=== PATIENT | male | born 1950 | race Caucasian/White ===

== ENCOUNTER 2017-03-06 07:44 | Inpatient (IN) | payer MEDICARE ==
[~2017-03-06] VITALS: Ht 172.7 cm; Wt 122.2 kg
[2017-03-06] VITALS (7 sets, daily range): BP systolic 92–142; BP diastolic 56–76
--- NOTE | ~2017-03-06 | PR ---
[place], [place] PROGRESS NOTE NAME: ELIESER KAHN [facility] #: [id number] UNIT #: [id number] ROOM: [facility] DOCTOR: SWETA CRENSHAW MD BIRTHDATE: [birth year] DOS: 03/10/2017 SUBJECTIVE: The patient was seen at his bedside today with his in attendance. He just returned from a CAT scan of the chest and also was just suctioned. He is very fatigued and somewhat breathless. He has very coarse sounding breath sounds. His monitor does show that he is back in atrial flutter with 2:1 block and a ventricular rate of 151. Blood pressure is maintained however at 119/54. He denies any chest pain, but is short of breath and tachypneic. PHYSICAL EXAMINATION: VITAL SIGNS: His pulse is 150 and regular, blood pressure is 119/54. He is afebrile. NECK: Supple. He has mild jugular distention with hepatojugular reflux. Carotids are full. LUNGS: Respirations are tachypneic and he does have audible coarse breath sounds. Respirations are somewhat labored. He does have bibasilar rales. HEART: Has a regular rapid rhythm with distant tones. ABDOMEN: Obese, but otherwise benign. EXTREMITIES: He does have swelling of his arms. He does not have significant ankle edema. The monitor does show atrial flutter. LABORATORY DATA: Hemoglobin is 8.9, white count 1800, platelet count 40,000. Sodium 134, potassium 3.6, BUN 23, and creatinine 1.19. Chest x-ray yesterday showed cardiomegaly with mild hilar vascular congestion and a small left effusion. A CAT scan of the chest is reportedly pending for today. IMPRESSION: 1. Paroxysmal atrial fibrillation and flutter. The patient has remained in atrial flutter and fibrillation since 03/08/2017 and his rate has been difficult to control. He remains on the amiodarone drip and we are giving him intravenous metoprolol. Digoxin level yesterday was 1.6 and we will start routine digoxin dosage today. We will check a digoxin level again tomorrow. 2. Sepsis with gram-positive cocci in clusters in his blood. ID was positive for Staphylococcus aureus, which is also growing in his foot wound. 3. Diabetes mellitus. 4. Essential hypertension. 5. Obesity. 6. Gout. 7. Immunocompromised host. PLAN: We will start digoxin every other day and continue IV metoprolol along with IV amiodarone. The patient is unable to take well p.o. and therefore his medications will be for the most part given intravenously. We will continue efforts to control his rate as his infections are being treated. [place], [place] PROGRESS NOTE NAME: ELIESER KAHN UNIT #: [id number] ROOM: [facility] DOCTOR: SWETA CRENSHAW MD BIRTHDATE: [birth year] I thank the hospitalist group for asking our advice regarding his care. SWETA CRENSHAW MD CM:PNTRANS [id number] SWETA CRENSHAW MD 03/10/17 1554 interface
--- NOTE | ~2017-03-06 | PR ---
[place], [place] PROGRESS NOTE NAME: ELIESER KAHN UNIT #: [id number] ROOM: [facility] DOCTOR: FAVIO NELSON MD BIRTHDATE: [birth year] DOS: 03/13/2017 REASON FOR VISIT: Atrial fibrillation. SUBJECTIVE: The patient is alert, in no acute distress. Denies any chest pain or shortness of breath. The patient is mostly noncommunicative. RHYTHM STRIPS: The patient was in sinus rhythm, rate of 85. REVIEW OF SYSTEMS: Review of the 8 systems negative except as mentioned above. OBJECTIVE: VITAL SIGNS: Blood pressure 113/52, pulse 92, respirations 20. GENERAL: Alert, comfortable, in no acute distress. HEENT: Pupils are round and equal. NECK: Supple. No distended neck veins, no carotid bruit. CHEST: Symmetrical, nontender. LUNGS: Few scattered rhonchi. HEART: Regular rhythm. No S3, no palpable thrills. ABDOMEN: Benign, nontender. Bowel sounds normal. EXTREMITIES: Showed no edema. Distal pulses palpable. SKIN: Warm and dry. No cyanosis, no clubbing. MEDICATIONS: Reviewed. LABORATORY DATA: Reviewed. IMPRESSION AND PLAN: 1. Paroxysmal atrial fibrillation, in sinus rhythm. The patient was on Eliquis, which was discontinued few days ago. He was on IV amiodarone, which I will discontinue after the current bag. His blood pressure and heart rates are stable. - Due to his multiple comorbid conditions, I recommended conservative medical therapy. 2. Chronic kidney disease. 3. Ventricular ectopy, asymptomatic. 4. Metastatic cancer. 5. Bacteremia. The above treatment plan was discussed with the patient and his several family members who were at bedside. Cardiology will sign off and we will see him as needed. [place], [place] PROGRESS NOTE NAME: ELIESER KAHN UNIT #: [id number] ROOM: [facility] DOCTOR: FAVIO NELSON MD BIRTHDATE: [birth year] FAVIO NELSON MD CM:PNTRANS [id number] FAVIO NELSON MD 03/14/17 0625 interface
--- NOTE | ~2017-03-06 | CON ---
[place], [place] REPORT OF CONSULTATION NAME: ELIESER KAHN [facility] #: [id number] UNIT #: [id number] ROOM: [facility] DOCTOR: TERENCE MUNIZ MD BIRTHDATE: [birth year] DOS: 03/08/2017 HISTORY OF PRESENT ILLNESS: The patient is a pleasant 66-year-old [place] gentleman who came to [facility] via EMS for generalized weakness. As per the patient, he received chemotherapy on 03/02/2017, this was the third cycle of Taxotere. Since starting chemo, he started having diarrhea. Subsequently, he came to the Emergency Room and was admitted. On routine CBC examination, was found to be neutropenic and anemic and thrombocytopenic and consulted for further evaluation and management. PAST MEDICAL HISTORY: Metastatic castrate-refractory prostatic adenocarcinoma with a Jorge score of 9 on the right side and 8 on the left side with metastatic disease to the bones, diagnosed in 01/23/2015 on fractional biopsy, skeletal metastatic disease to the cervical, thoracic and lumbar spine, pelvis and hips without any fractures. The patient was on bicalutamide 50 mg daily from 02/2015 to 01/2016. He was on Xgeva 120 mg subcutaneously monthly for a couple of doses between 02/13/2016 to 06/24/2016 for a total of 5 doses, stopped due to hypocalcemia. The patient was on enzalutamide 160 mg by mouth from 03/10/2016 until he recently started chemotherapy on 01/11/2017, history of hypertension, type 2 diabetes, coronary artery disease, obesity, history of metastatic adenocarcinoma diagnosed with prostatic needle biopsy in 01/2015, GERD, and morbid obesity. PAST SURGICAL HISTORY: Colon resection, history of total bilateral knee replacement, and history of Port-A-Cath. SOCIAL HISTORY: No smoking or drinking. He was a former smoker, quit 10 years ago. FAMILY HISTORY: Father with [place], . Mother with [place], . ALLERGIES: ACETAMINOPHEN THAT IS VICODIN. MEDICATIONS: Allopurinol, Norvasc, Eliquis, atorvastatin, calcium carbonate, dexamethasone, leuprolide acetate, megestrol acetate, oxybutynin chloride, phosphorus, prednisone, zoledronic acid, Januvia and tamsulosin. REVIEW OF SYSTEMS CONSTITUTIONAL: No chills. No fatigue. No fever. No loss of appetite. No night sweats. No weakness. No weight loss. HEENT: No trouble swallowing. No loss of smell. No loss of hearing. No double vision. No pain. No discharge. ENT AND RESPIRATORY: No wheeze. No sore throat. No change in voice. No hearing loss. No nose bleed. No cough. No trouble breathing through nose. No shortness of breath. No coughing up blood. No epistaxis. CARDIOVASCULAR: No chest pain. No dizziness. No irregular heartbeat. No leg edema. No pain in legs while walking. No palpitations. No shortness of breath. DERMATOLOGIC: No acne. No hives. No laceration. No mole. No rash. ENDOCRINE: No cold intolerance. No diabetes. No fatigue. No hot flashes. No [place], [place] REPORT OF CONSULTATION NAME: ELIESER KAHN UNIT #: [id number] ROOM: [facility] DOCTOR: TERENCE MUNIZ MD BIRTHDATE: [birth year] polydipsia. No polyuria. No urinating frequently. No weight loss. HEMATOLOGIC AND LYMPH: No fatigue. No easy bruising. GASTROENTEROLOGIC: No change in bowel habits. No indigestion. No frequent bloating. No vomiting blood. No abdominal cramping. No nausea. No heartburn. No vomiting. No abdominal pain. No dysphagia. No diarrhea. No constipation. No blood in stool. MALE REPRODUCTIVE: No testicular pain. No difficulty with erection. No diminished sexual drive. No penile discharge. MUSCULOSKELETAL: No back pain. No muscle pain or weakness. No neck pain. No tingling/numbness. No swelling/bruising. No osteoporosis treatment. OPHTHALMOLOGIC: No double vision. No diminished vision. No loss of vision. UROLOGIC: No dysuria. No frequent nighttime urination. No pain with urination. No difficulty urinating. No blood in urine. No frequent urination. No urinary incontinence. NEUROLOGIC: No loss of sensation in specific body area. No vertigo. No burning pain in feet. No trouble with balance. No trouble with coordination. No loss of consciousness. No loss of feeling/power. No confusion. No headache. No tingling/numbness. PSYCHOLOGIC: No tinnitus. No headaches. No shortness of breath. No weight decrease. No nausea. No vomiting. No abdominal discomfort. No constipation. No diarrhea. No depression. No anxiety. PHYSICAL EXAMINATION: GENERAL: General appearance: Pleasant gentleman, no apparent distress. VITAL SIGNS: Stable, afebrile. HEENT: Oral mucosa appears intact. The external ears are normal in appearance. Nares are patent without lesions, exudates, erythema, or inflammation. Tongue is symmetrical. Uvula is midline. NECK AND THYROID: Neck supple without palpable masses. Trachea is midline. No thyromegaly. No carotid bruit or JVD. BREASTS: Normal. Nipples unremarkable. No drainage. No lumps felt on either side. HEART: Normal S1, S2, without significant murmur, rub, or gallop. LUNGS: Clear to auscultation and percussion with good air entry bilaterally. The patient is breathing easily without the use of accessory muscles. Diaphragmatic excursions are intact. ABDOMEN: No costovertebral angle tenderness. Soft. No organomegaly or masses. Nontender. No hernias present. Liver and spleen are not palpable. LYMPHATIC: No adenopathy noted in the cervical, supraclavicular, axillary, or inguinal regions. NEUROLOGIC: Nonfocal. Oriented to person, place, and time. MENTAL STATUS: Appropriate for mood and affect. PERIPHERAL PULSES: No varicosities. Femoral and pedal pulses are palpable. EXTREMITIES: Without cyanosis, clubbing, or edema. No gross anomalies. LABORATORY DATA: White count of 0.3, hemoglobin of 8.9, hematocrit 26.1, platelet count of 42,000. Chemistry, EGFR more than 60. ASSESSMENT: 1. Metastatic castrate-refractory prostate adenocarcinoma status post cycle #3 [place], [place] REPORT OF CONSULTATION NAME: ELIESER KAHN UNIT #: [id number] ROOM: [facility] DOCTOR: TERENCE MUNIZ MD BIRTHDATE: [birth year] of chemotherapy Taxotere. 2. Pancytopenia secondary to chemotherapy. 3. Neutropenia. 4. History of atrial fibrillation. 5. History of Clostridium difficile. PLAN: The patient was started on growth factors, neutropenic precautions, transfusion if the counts drop further. The patient will be also started on antibiotics, if he develops fever. I had a detailed discussion with the patient about it and the family seemed to understand it. Ample time was given to the patient to ask me questions. We will follow. Thanks for consulting and letting me to participate in the care of this interesting patient. TERENCE MUNIZ MD CM:CONSTR:REPORT OF CONSULTATION 1417 03/08/17 2321 interface
--- NOTE | ~2017-03-06 | PR ---
[place], [place] PROGRESS NOTE [id number] UNIT #: [id number] ROOM: [facility] DOCTOR: TERENCE MUNIZ MD BIRTHDATE: [birth year] DOS: 03/16/2017 SUBJECTIVE: The patient is doing some better. He is alert and oriented. Respond to verbal command. PHYSICAL EXAMINATION: GENERAL: Pleasant gentleman in no apparent distress. VITAL SIGNS: Stable, afebrile. HEENT: Normocephalic, atraumatic NECK AND THYROID: Supple. No JVD, thyromegaly, or lymphadenopathy. HEART: Normal S1, S2. Regular rate and rhythm. LUNGS: Clear to auscultation and percussion. ABDOMEN: Soft. Nontender, nondistended. Bowel sounds present. EXTREMITIES: Normal ROM. No clubbing. No edema. LABORATORY DATA: White count of 6.8, hemoglobin 8.4, hematocrit 25.4, platelet count of 51,000. Peripheral smear shows metamyelocytes and myelocytes. ASSESSMENT: 1. Severe sepsis. 2. Staphylococcus aureus bacteremia. 3. Hormone refractory metastatic prostate cancer. 4. Thrombocytopenia, anemia secondary to chemotherapy/bone marrow suppression. PLAN: The patient is already on broad spectrum antibiotics. We will keep a close watch at this time. Transfer on p.r.n. basis. Continue present management. His neutropenia has resolved. Platelet transfusion if he starts bleeding or the platelet count drops. Discussed with the family also in the past. TERENCE MUNIZ MD CM:PNTRANS 3 TERENCE MUNIZ MD 03/16/17903 interface
--- NOTE | ~2017-03-06 | PR ---
[place], [place] PROGRESS NOTE NAME: ELIESER KAHN [facility] #: [id number] UNIT #: [id number] ROOM: [facility] DOCTOR: TERENEC MUNIZ MD BIRTHDATE: [birth year] DOS: 03/10/2017 SUBJECTIVE: The patient was seen today. He is responsive, but somnolent. He is able to communicate by nodding. REVIEW OF SYSTEMS HEENT: No trouble swallowing. No double vision. No loss of vision. No pain. ENT AND RESPIRATORY: No wheeze. No change in voice. No cough. No shortness of breath. No coughing up blood. No epistaxis. CARDIOLOGIC: No chest pain. No dizziness. No irregular heartbeat. No leg edema. No palpitations. No shortness of breath. HEMATOLOGIC AND LYMPH: No past transfusion. No fatigue. No loss of appetite. No easy bruising. GASTROENTEROLOGIC: No change in bowel habits. No vomiting blood. No abdominal cramping. No nausea. No vomiting. No diarrhea. No constipation. No blood in stool. MALE REPRODUCTIVE: No testicular pain. No penile discharge. MUSCULOSKELETAL: No back pain. No muscle pain or weakness. No tingling/numbness. UROLOGIC: No pain with urination. No difficulty urinating. No frequent urination. NEUROLOGIC: No burning pain in feet. No trouble with coordination. No loss of consciousness. No headache. No tingling/numbness. No memory loss. PHYSICAL EXAMINATION: GENERAL: Pleasant gentleman in no apparent distress. VITAL SIGNS: Stable, afebrile. He is on a BiPAP machine. HEENT: Normocephalic, atraumatic NECK AND THYROID: Supple. No JVD, thyromegaly, or lymphadenopathy. HEART: Normal S1, S2. Regular rate and rhythm. LUNGS: Show bilateral decreased breath sounds bilaterally. ABDOMEN: Soft. Nontender, nondistended. Bowel sounds present. EXTREMITIES: Normal ROM. No clubbing. No edema. LABORATORY DATA: White count 1.8, hemoglobin of 8.9, hematocrit 26.1, and platelet count of 40,000. Chemistries: BUN of 23, EGFR more than 60. Sodium 134, potassium 3.6, chloride 100, bicarbonate 22, total protein 4.7, total bilirubin 1.1, SGOT 31, and SGPT 34. ASSESSMENT: 1. Metastatic hormone refractory prostate cancer with metastatic disease to the bones. 2. Pancytopenia secondary to chemotherapy, which is frequent. 3. Sepsis. 4. Bacteremia. 5. Paroxysmal atrial fibrillation. PLAN: His counts got better. His neutrophils decent number. We could stop neutropenic precautions, but continue the growth factors. In addition, he will be going for further workup for possible PE. Continue broad spectrum [place], [place] PROGRESS NOTE NAME: ELIESER KAHN UNIT #: [id number] ROOM: [facility] DOCTOR: TERENCE MUNIZ MD BIRTHDATE: [birth year] antibiotics. Had discussed with the patient and his family in detail. Ample time was given to the patient and family to me ask questions. TERENCE MUNIZ MD CM:PNTRANS [id number] TERENCE MUNIZ MD 03/10/17 1553 interface
--- NOTE | ~2017-03-06 | PR ---
[place], [place] PROGRESS NOTE [id number] #: [id number] ROOM: [facility] DOCTOR: TARA WEBB MD BIRTHDATE: [birth year] DOS: 03/15/2017 SUBJECTIVE: Progressive decline in overall status of the patient was noted. The patient was noted with significant bleeding orally and also other side with possible consideration of the ICU was also considered. The patient was getting pain medication, currently noted on oxygen supplementation nasal cannula. The family members have changed the code status of the patient to comfort care at the present time. OBJECTIVE: GENERAL: The patient's mental status was noted decreased consciousness. HEENT: Shows dried blood noted in nostril. The oral mucosa was also noted extremely dry, which was noted with some clotted blood as well. The neck was supple. CARDIOVASCULAR: S1, S2 audible. LUNGS: Noted with moderate decreased breath sounds with occasional crackles. ABDOMEN: Noted soft. Bowel sounds decreased. EXTREMITIES: Noted with mild edema. CENTRAL NERVOUS SYSTEM: Change in mental status. MUSCULOSKELETAL: No deformities. LABORATORY DATA: CBC today, hemoglobin 7.9, hematocrit 24.4, platelet count 50,000. D-dimer noted elevated at 1.91. The BMP of the patient that was done this morning showed BUN 62, creatinine 2.02, glucose 207, and potassium 3.1. IMPRESSION: Progressive worsening of the respiratory status. The patient was noted with change in mental status, acute respiratory failure, bleeding setting coagulopathy possibly due to DIC with possibility of sepsis and underlying malignancy which has been known as metastatic prostate cancer as well, moderate obesity. PLAN OF TREATMENT: The patient will be continued with current comfort measures as requested by the family member, palliative care provided as the prognosis for this patient is extremely poor. Additional treatment changes will be made for the patient based on progression of illness as needed. [place], [place] PROGRESS NOTE NAME: ELIESER KAHN UNIT #: [id number] ROOM: [facility] DOCTOR: TARA WEBB MD BIRTHDATE: [birth year] TARA NAYLOR MD CM:PNTRANS [phone] TARA TIJERINA MD 03/16/17 0145 interface
--- NOTE | ~2017-03-06 | PR ---
[place], [place] PROGRESS NOTE NAME: ELIESER KAHN UNIT #: [id number] ROOM: [facility] DOCTOR: JERONIMO CAI,ELWIS Juarez BIRTHDATE: [birth year] DOS: 03/13/2017 ADDENDUM I agree with the above plans as described to follow the patient clinically and adjust accordingly. LEWIS DECKER MD CM:PNTRANS [phone] LEWIS DECKER MD 03/13/17 2246 interface
--- NOTE | ~2017-03-06 | CON ---
[place], [place] REPORT OF CONSULTATION NAME: ELIESER KAHN [facility] #: [id number] UNIT #: [id number] ROOM: [facility] DOCTOR: KEYSHAWN SAAVEDRA MD BIRTHDATE: [birth year] DOS: 03/11/2017 HISTORY OF PRESENT ILLNESS: 1. The patient is a 66-year-old gentleman with a past medical history of metastatic cancer of the prostate with spread to the bones and he has undergone chemotherapy. 2. Immunocompromised secondary to prostate cancer and chemotherapy. 3. Recent severe sepsis. 4. Right foot wound and cellulitis. 5. Type 2 diabetes mellitus. 6. Chronic atrial fibrillation. 7. Coronary artery disease of the eagle vessels with history of stent placement. 8. Benign essential hypertension. 9. Chronic gouty arthritis. 10. The patient anticoagulated with Eliquis for chronic atrial fibrillation. 11. Mixed hyperlipidemia. 12. Gastroesophageal reflux disease. The patient presently in ICU with full code status after he received chemotherapy became immunocompromised and developed pancytopenia with sepsis. The patient is being followed by Infectious Disease specialist and being treated with nafcillin. The patient's and sons are present with him. The patient is very weak and only communicates by nodding or shaking his head and he is on oxygen. No recent complaints of chest pain. No fainting episode. No other GI or urinary symptoms. REVIEW OF SYSTEMS: LUNGS: The patient with hypoxemia and shortness of breath. GASTROINTESTINAL: No nausea, vomiting, diarrhea or constipation. CARDIOVASCULAR: No chest pains or palpitations. FAMILY HISTORY: Noncontributory. SOCIAL HISTORY: No recent smoking cigarettes, alcohol and drug abuse. MEDICATIONS: The patient on hyperalimentation, digoxin, metoprolol, allopurinol, oxybutynin, intravenous amiodarone, Megace, prednisone, insulin, nafcillin, temazepam. LABORATORY DATA: Chest x-ray showing a central line. Hemoglobin 9.2. White cell count of 4800, 86% neutrophils, platelets low at 51,000. BUN and creatinine 36 and 1.4, albumin low at 1.5. Digoxin level of 2.04. IMPRESSION: The patient with advanced metastatic cancer of the prostate with mets to the bone, status post chemotherapy and pancytopenia, now with sepsis, is being treated with nafcillin by Infectious Disease specialist. The patient remains in a very weak condition and he has severe protein-calorie malnutrition. The patient's prognosis remains poor and he is in the ICU for treatment with full code status. I had a detailed discussion with the patient's who takes care of him at home normally and his 2 sons who were present with him in the ICU and they decided that the patient would not like any intubation, mechanical [place], [place] REPORT OF CONSULTATION NAME: ELIESER KAHN UNIT #: [id number] ROOM: [facility] DOCTOR: KEYSHAWN SAAVEDRA MD BIRTHDATE: [birth year] ventilation or invasive procedures to save his life and he would like to be DNR comfort care code status. The patient also indicated that he would go with that code status. The patient with severe protein-calorie nutrition to get nutritional supplements and dietary to follow. Sepsis, pancytopenia related to chemotherapy and metastatic cancer of the prostate being treated with IV antibiotics. Acute respiratory failure. The patient remains on oxygen in the ICU and pulse oxygen therapy is being titrated. Chronic atrial fibrillation, heart rate is controlled with intravenous amiodarone and Lopressor. The patient is unable to tolerate diet at present time and he is on Hyperal for his nutritional needs going through the central line. Type 2 diabetes mellitus. Blood sugars are being monitored and treated. Chronic gouty arthritis, presently asymptomatic. Benign essential hypertension. Blood pressure is being monitored and controlled in the ICU. The patient with advanced protein-calorie malnutrition with metastatic prostate cancer to the bones, chemotherapy and pancytopenia with sepsis. The patient and family has decided on maintaining a DNR comfort care code status and would consider hospice consult. I recommended that the patient should be transferred to prison facility at the time of rehab because prior to admission, the patient's was taking care of him at home, but with increased weakness, she is unable to take care of him at home anymore, at least until he possibly gets stronger. This was discussed with patient's and sons and they agree. Dr. Sagar Bernabe, thank you for asking me to see the patient. KEYSHAWN SAAVEDRA MD CM:CONSTR:REPORT OF CONSULTATION 1708 03/12/17 0032 interface
--- NOTE | ~2017-03-06 | CON ---
[place], [place] REPORT OF CONSULTATION [facility] [id number] UNIT #: [id number] ROOM: [facility] DOCTOR: SWETA CRENSHAW MD BIRTHDATE: [birth year] DOS: 03/07/2017 REASON FOR CONSULTATION: Atrial fibrillation with rapid ventricular response. HISTORY OF PRESENT ILLNESS: The patient is a 66-year-old man who is known to have prostate cancer with multiple bone metastases including to his back, knees, hips and shoulders. He states that he has been on chemotherapy lately and has received three courses of chemotherapy thus far. The most recent of these was on 11/11/2017. Since then he has had poor appetite along with diarrhea and weakness. He felt like he could not walk. He feels unsteady on his feet and therefore came to the hospital on 03/06/2017. He was found to be severely dehydrated and septic with gram-positive cocci in clusters. Identification is not yet available. Infection is possibly due to his immunocompromised state from his chemotherapy, in addition to which the patient does have a diabetic foot ulcer on his right foot. The patient was started on antibiotics by the Infectious Disease Service. His electrocardiogram on admission showed sinus tachycardia, but he did convert to atrial fibrillation in the hospital and we were asked to assist in his care. The patient and his deny that he has had any heart problems in the past, but they state that he was first documented as having atrial fibrillation when he was hospitalized at [facility] in January 2017. They state that he did require a cardioversion and has been maintained on Rythmol and apixaban since then. The patient denies any history of myocardial infarction or stroke. He denies any history of rheumatic fever or valvular heart disease. He has not had any chest pain. PAST MEDICAL HISTORY: Includes: 1. Prostate cancer with bone metastases. 2. Type 2 diabetes mellitus. 3. Essential hypertension. 4. Morbid obesity. 5. Right foot diabetic ulcer. 6. History of bilateral total knee replacements. 7. History of colon resection. 8. Chemotherapy for bony metastases from prostate cancer. 9. Atrial fibrillation first documented mid January 2017. The patient reported that he reportedly did have a cardioversion at that time. MEDICATIONS: Prior to admission: Lupron injections dose unknown, digoxin 250 mcg twice in the Emergency Room, Zometa 4 mg IV daily, allopurinol 300 mg daily, apixaban 5 mg b.i.d., atorvastatin 40 mg at bedtime, calcium carbonate with vitamin D b.i.d., dexamethasone 8 mg daily, Megace 40 mg b.i.d., metoprolol 50 mg twice a day, omeprazole 20 mg daily, oxybutynin 5 mg daily, phosphorus 250 mg twice a day, potassium 40 mEq daily, prednisone 5 mg b.i.d., prochlorperazine 10 mg q. 6 hours p.r.n., propafenone 150 mg t.i.d., sitagliptin 100 mg daily and tamsulosin 0.4 mg daily. [place], [place] REPORT OF CONSULTATION NAME: ELIESER KAHN UNIT #: [id number] ROOM: [facility] DOCTOR: SWETA CRENSHAW MD BIRTHDATE: [birth year] ALLERGIES: The patient lists allergies to HYDROCODONE and VICODIN. FAMILY HISTORY: Both parents of possible heart attacks. The patient is not aware of any details. REVIEW OF SYSTEMS: The patient denies diplopia or loss of vision. He is generally weak, especially in his legs and feels very unsteady on his feet. He denies focal weakness. He has had poor appetite and diarrhea. He denies vomiting or bleeding from any site. He denies fevers or chills. He is not sure about weight loss. He has some swelling in his ankles. The remainder of review of systems is negative except as noted above. SOCIAL HISTORY: The patient is and lives with his . He does not currently smoke or consume significant amounts of alcohol. PHYSICAL EXAMINATION: GENERAL: The patient is overweight white male who is awake, alert and oriented. He does appear quite weak. VITAL SIGNS: Pulse is 100 and regular, blood pressure is 112/64, temperature is 99.5, monitor shows that he has converted to sinus rhythm. HEENT: Normocephalic and atraumatic. Extraocular muscles are intact. Sclerae are clear. Pupils are round and react to light. The oral mucosa is moist. Tongue is midline. NECK: Supple. I could not tell if he had neck vein distention because he has a very heavy neck. Carotids are full and I heard no bruits. He had no neck or supraclavicular masses. RESPIRATIONS: Slightly tachypneic.. He does have coarse breath sounds bilaterally. He had decreased breath sounds at the bases. There was no presacral edema or chest wall tenderness. HEART: Had very distant tones. His heart was regular. He had a fourth heart sound, but no third heart sound or obvious murmur. I could not feel the PMI. There was no precordial heave, lift or thrill. ABDOMEN: Obese, but otherwise benign, without masses, organomegaly or bruits. EXTREMITIES: Showed trace edema at the ankles. Pedal pulses were diminished at the ankles. His right foot was bandaged. DIAGNOSTIC STUDIES: Chest x-ray is reported to be without any acute findings; however, my observation of the chest x-ray is that the lung markings are crowded and possibly he does have some degree of heart failure. His current electrocardiogram on the monitor shows sinus rhythm and sinus tachycardia. LABORATORY DATA: Hemoglobin is 8.9 with hematocrit 26.0. There are 500 white cells. Platelet count is 38,000. Sodium is 126, potassium 3.7, BUN 18, creatinine 1.02. INR is 1.3. Urinalysis is positive for protein, blood and nitrite. IMPRESSIONS: 1. Paroxysmal atrial fibrillation. The patient has converted back to sinus rhythm during this hospitalization. [place], [place] REPORT OF CONSULTATION NAME: ELIESER KAHN UNIT #: [id number] ROOM: [facility] DOCTOR: SWETA RCENSHAW MD BIRTHDATE: [birth year] 2. Sepsis. The patient does have gram-positive cocci in clusters in his blood, origin maybe his diabetic foot ulcer. He also appears to have urinary tract infection. 3. Diabetes mellitus. 4. Essential hypertension. 5. Obesity. 6. Gout. PLAN: We will be requesting the results of his recent echocardiogram from [facility]. We will have to be careful with this fluids and if he becomes any more short of breath, I will be diuresing him. For now, we will wean him off of his diltiazem, but continue his metoprolol, propafenone and apixaban. We will check a digoxin level. Further recommendations will depend upon his course in the hospital. His infections are being managed by the Infectious Disease Service. Further evaluation with a transesophageal echocardiogram may be necessary as the hospitalization progresses, if indeed the patient does have Staphylococcus in his blood. We thank the hospitalist physicians for asking our advice regarding his care. SWETA CRENSHAW MD CM:CONSTR:REPORT OF CONSULTATION 1459 03/07/17 1653 interface
--- NOTE | ~2017-03-06 | CON ---
[place], [place] REPORT OF CONSULTATION NAME: ELIESER KAHN [facility] #: [id number] UNIT #: [id number] ROOM: [facility] DOCTOR: DAYDAY TIJERINA MD,TARA BIRTHDATE: [birth year] DOS: 03/08/2017 REASON FOR CONSULTATION: Assess the patient's change in mental status, acute ongoing bacteremia and lethargy. CONSULTATION REQUESTED BY: Hospitalist services. HISTORY OF PRESENT ILLNESS: This is a 66-year-old white male patient who has been admitted under the care of hospitalist services. The consultation requested by the hospitalist services. The patient was admitted to the hospital on 03/06/2017 as he was brought to the hospital because of getting progressive general weakness and fatigue as described. The patient has been known with past history of cancer of the prostate, which has been noted metastatic to the bone. The patient has been receiving chemotherapy for that. He has been admitted to the medical floor. The patient was noted with acute kidney injury. The patient has several other medical problems including severe pancytopenia. The patient has been transferred to Intensive Care Unit yesterday for close monitoring. This morning, the patient appeared to be pale with decreased mentation. The patient aroused, but unable to give me any history accurately. He denies any symptoms of chest pain or cough. The patient had a chest x-ray taken this morning, which showed pulmonary venous congestion. The patient was noted room air oxygen about 91%-92% oxygen saturation noted at the bedside. He is not requiring any vasopressor support. The atrial fibrillation with rapid ventricular response was noted on admission, which has been treated with intravenous medication for his management. He was also getting growth factors for the medical regimen of current pancytopenia as well. REVIEW OF SYSTEMS: Certainly cannot be completed at this time with current overall medical status. PAST MEDICAL HISTORY: 1. Metastatic cancer of the prostate, which has been known for the patient, as currently treated with the chemotherapy. 2. History of type 2 diabetes mellitus. 3. Essential hypertension. 4. Morbid obesity. 5. Diabetic right foot ulcer. 6. Atrial fibrillation as well known previously. 7. History of gout. 8. History of gastroesophageal reflux. PAST SURGICAL HISTORY: 1. MediPort insertion. 2. Resection of the colon, reason was unknown. 3. Bilateral total knee replacement. 4. Biopsy of the prostate. SOCIAL HISTORY: The patient has been known with history of tobacco use, which was discontinued more than 10 years ago. The quantity and actual duration of tobacco use was unknown. There was no history of past alcohol use, illicit drug [place], [place] REPORT OF CONSULTATION NAME: ELIESER KAHN UNIT #: [id number] ROOM: [facility] DOCTOR: DAYDAY TIJERINA MD,TARA BIRTHDATE: [birth year] use. Occupation, pulmonary history unknown. FAMILY HISTORY: The patient has been reported as history of possible myocardial infarction in both parents who have been . MEDICATIONS: From patient home were noted as use of Eliquis, allopurinol, Lipitor, dexamethasone, Lupron shots, Megace, metoprolol tartrate, omeprazole, oxybutynin chloride, potassium chloride, prednisone 5 mg b.i.d., Compazine p.r.n. use, Rythmol, Januvia, Flomax, and Zometa. Most of the home medications has been resumed. In addition, the patient was getting intravenous amiodarone, which had been bolused, which patient had been given couple of times previously. The patient was getting IV vancomycin and IV meropenem as well as Neupogen. DRUG ALLERGY HISTORY: REPORTED HISTORY OF ALLERGY TO THE VICODIN. PHYSICAL EXAMINATION: GENERAL: This is a 66-year-old white male who appeared to be somewhat lethargic patient at this time of assessment. VITAL SIGNS: Height of 5 feet 8 inches, weight of 268 pounds, BMI 40.7. The patient appears to be pale. Possibility of mild icterus would be considered. Heart rate was noted 150-160 beats per minute with atrial flutter/fibrillation for the patient would be considered. The heart rate noted persistently elevated since admission in atrial fibrillation with rapid ventricular response. The temperature noted low grade at 99.5 degrees Fahrenheit in the last 24 hours. The respiratory rate range between 30-31. Blood pressure 103/62-128/68 without any need of vasopressors. The intake is 2230 mL, output 4800 mL, ____ 2.570 liters. HEENT: Atraumatic. Eyes nonicterus. Dry oral mucosa. NECK: Supple with moderate obesity. CARDIOVASCULAR: S1, S2 audible. LUNGS: Moderate decreased breath sounds. There were no scattered crackles. There was no wheezing. ABDOMEN: Soft, moderate, nontender. Bowel sounds present. SKIN: Visible skin. No lesions or rashes. MUSCULOSKELETAL: No gross deformities. CENTRAL NERVOUS SYSTEM: Decreased mental status and generalized weakness. There were no gross focal or neurological deficits, at this time was apparent. LABORATORY DATA: CBC that was done on admission on 03/06/2017, WBC count 1.0, hemoglobin 10.3, hematocrit 29.4, platelet count 57,000. On admission, 94% segmented neutrophils. PT/PTT on admission noted with INR 1.3, PTT 38. Lactic acid 3.1 noted on 03/06/2017 on admission. Magnesium and lipase for this patient and troponin first sets were noted normal on 03/06/2017. Several other lactic acid was done previously for the patient with last lactic acid noted 3.1 on the of this month. The CBC that was done this morning labs, WBC count was 0.3, hemoglobin 8.9, hematocrit 26.1, platelet count 42,000. The differential for the patient was noted as 20% lymphocytes, 2% metamyelocytes. The CMP that was done this morning showed glucose 212, BUN 12, creatinine 0.67. Sodium 131, potassium 3.2, uncorrected calcium 6.7, bilirubin 1.2, albumin 1.8, total protein of 4.8. Digoxin level 0.68. Lipase was normal. Blood culture [place], [place] REPORT OF CONSULTATION NAME: ELIESER KAHN UNIT #: [id number] ROOM: [facility] DOCTOR: DAYDAY TIJERINA MD,[facility] BIRTHDATE: [birth year] for this patient, which has been done on the of this month, the first two sets shows no bacterial growth. The second two sets of blood culture noted with gram-positive cocci staph aureus isolated in both bottles for the patient, aerobic and anaerobic. It was noted methicillin-sensitive species. Stool for C. diff toxin noted as negative today. Arterial blood gas that I ordered was obtained shows pH of 7.44, pCO2 of 30.7, pO2 of 55.9. This was done on room air. The culture of the wound of the foot was noted to have gram-positive cocci growth from the right foot, pending identification sensitivities. RADIOLOGY DATA: Reviewed for the patient was also done. The chest x-ray of the patient that was done, 1 view, on 03/06/2017 shows questionable infiltration in the right upper lobe. CT scan of the chest was done on 03/06/2017, was reviewed and shows no acute major pulmonary abnormalities were noted including lymphadenopathy or any visible nodules. The CT scan of the abdomen and the pelvic finding reported by the radiologist had diffuse colitis with wall thickening and mucosal edema. Multiple very small calcified gallstones were noted, a small bubble of air in the fundus of the gallbladder also described. Diffuse sclerotic bone metastatic changes were noted. Chest x-ray of this patient on the 14th of this month does not show any acute abnormalities. Infiltration, chest x-ray, which was obtained today shows finding of pulmonary venous congestion. Echocardiogram done for the patient, which was assessed by Dr. Allen on 03/08/2017 was reported with findings of moderate tricuspid regurgitation without any major other abnormality in the valve. Diastolic dysfunctions were noted, underlying rhythm of atrial fibrillation with rapid ventricular response. IMPRESSION: 1. The patient has been currently admitted to the hospital noted with severe acute sepsis related to gram-positive cocci bacteremia Staph aureus, origin for the patient could be considered from the foot of this patient as well as possibility of MediPort would be also considered. 2. Acute hypoxic respiratory failure secondary to acute severe sepsis without any obvious gross pulmonary infiltration, mild pulmonary venous congestion noted, congestive heart failure, diastolic dysfunction, and atrial fibrillation with rapid ventricular response. 3. Persistent tachycardia, the patient's atrial fibrillation currently managed with various interventions including use of the digoxin, amiodarone use and intravenous Cardizem drip use. 4. Absolute neutropenia with severe immunosuppression as well. 5. History of advanced metastatic cancer of the prostate. 6. Jmzt-tu-[id number] obesity as well. 7. Anemia. There was no evidence of any active bleeding. 8. Right diabetic foot wound, which appear to be infected as well with the same organism and possibly Staph aureus with methicillin-sensitive species. Also colitis findings for this patient was noted may be due to neutropenic colitis as the likely cause. PLAN OF MANAGEMENT: The patient's vital signs will be supported, continue aggressive medical management of tachycardia, monitoring the hypotension if he develops ____ closely. Discussion of the code status with the family member of [place], [place] REPORT OF CONSULTATION NAME: ELIESER KAHN UNIT #: [id number] ROOM: [facility] DOCTOR: DAYDAY TIJERINA MD,TARA BIRTHDATE: [birth year] the patient because of current medical problems as well as advanced metastatic prostate cancer as well to determine the further code status. Use of the oxygen supplementation, maintain saturation 90% or greater if the respiratory status worsens, the patient continued to be full code to consider intubation and mechanical ventilation for the supportive respiratory failure. Bronchodilators as needed. Continue antibiotic per Infectious Disease services. The patient may require the extraction of the MediPort, but consultation to be obtained for this patient from the Infectious Disease service recommendation. Other supportive therapy, plan of management if continued as previously. Additional treatment changes need to be made for the patient based on the progression of the illness. Total time pulmonary critical care evaluation and management was 45 minutes. TARA NAYLOR MD CM:CONSTR:REPORT OF CONSULTATION 1650 03/09/17 0547 interface
--- NOTE | ~2017-03-06 | PR ---
[place], [place] PROGRESS NOTE NAME: ELIESER KAHN [facility] #: [id number] UNIT #: [id number] ROOM: [facility] DOCTOR: TARA WEBB MD BIRTHDATE: [birth year] DOS: 03/09/2017 SUBJECTIVE: The patient was seen and examined on 03/09/2017. He has been noted with oxygen desaturation this morning with chest congestion and respiratory distress. The patient was started on the BiPAP. The patient is having settings of 12/5 by the primary attending. The patient has been noted at this time to be awake, does follow vocal commands. He has not been noted symptoms of chest pain. The patient denies any abdominal pain. He has not reported any edema, pain of the lower extremity, which was worsened. He has not been reported any coughing, sputum expectoration, or headache. The patient remains mostly bedbound. The patient is in the Intensive Care Unit. He has been previously continued on oxygen supplementation just with the nasal cannula for the hypoxic respiratory failure. The oral intake of the patient was noted somewhat limited because of ongoing current medical illnesses. The family members were agreeable for the patient as well as the patient, possible intubation and mechanical ventilation if needs to be done. OBJECTIVE: VITAL SIGNS: For the patient which were recorded showed as normal. The respiratory rate of the patient recorded as 28-31. The heart rate of 148 and then later 120 beats per minute with reduction of the heart. The patient still noted with atrial fibrillation, blood pressure ranges between 113/63-107/67. The intake of the patient recorded as 1722 mL, output 1653 mL. The pulse oxygen saturation with the BiPAP 50% oxygen. The patient was noted at 93% saturation. Previous 2 liters noted 99% saturation. HEENT: Chronic moderate obesity. Head was atraumatic. Eyes: No icterus. NECK: Supple. CARDIOVASCULAR: Scattered crackles in the lungs were noted. There was no wheezing. ABDOMEN: Noted moderate obesity as well. EXTREMITIES: Shows obesity for the patient. Minimal ankle edema. LABORATORY DATA: The wound culture of the foot of the patient was noted with Staphylococcus aureus isolated, which was methicillin sensitive species similar finding in the blood cultures. Arterial blood gases 740 for the patient was noted as pH of 7.41, pCO2 of 33.8, BUN 53.2. CBC this morning, WBC count 0.5, hemoglobin 9.1, hematocrit 27.0, platelet count 37,000. CMP of the patient this morning, BUN 14, creatinine normal, glucose 191. Sodium 131, potassium 3.3, phosphorus 1.6, albumin 1.7, bilirubin of 1.2. The chest x-ray of the patient that was done today shows partial visualization of the left hemidiaphragm, possibility developing area of atelectasis, infiltration can be excluded. Mild pulmonary venous congestion marking. Cardiomegaly of the patient cannot be excluded, but because of rotational film towards the left side. It may be an exaggerated finding. There was no gross pleural fluid noted on the right side. IMPRESSION: 1. The patient who has been noted with progressive acute respiratory failure, combination of moderate congestive heart failure, fluid overload. Other etiology with developing either infiltration pneumonia or from area of atelectasis in the left lower lobe. [place], [place] PROGRESS NOTE NAME: ELIESER KAHN UNIT #: [id number] ROOM: [facility] DOCTOR: VENU WEBB MDM BIRTHDATE: [birth year] 2. The patient's severe pancytopenia related to chemotherapy. 3. Advanced metastatic prostate cancer. 4. Chronic moderate obesity. 5. Protein calorie malnutrition as well. 6. Severe electrolyte imbalance. 7. Hypoalbuminemia most likely related to the underlying protein calorie malnutrition. PLAN OF TREATMENT: Ordered the ionized calcium to accurately assess the patient's calcium level. The protein intake for the patient and improving the nutritional status. If the patient's respiratory status worsened or significant tachypnea still noted, intubation and mechanical ventilation will be done. Other supportive therapy, plan of management as well. Correction of the electrolytes will be done according to the results as well. Other additional treatment changes will be made for the patient according to the need, monitor hemodynamics, continue to maximize, atrial fibrillation with rapid ventricular response with medication done by the Cardiology Services, seem to be affected in gradual reduction of the heart rate. Deep venous thrombosis prophylaxis and mechanical prophylaxis because of thrombocytopenia. Monitor hemoglobin and hematocrit, continue growth factor for the medical management of severe absolute leukopenia. Continue medical management, bacteremia, Staph aureus as well as infection of the wound of the right foot. The patient with methicillin-sensitive Staphylococcus aureus. Other supportive plan of management and care. The patient is already being managed by the Infectious Disease services, follow their recommendations. Total time for the pulmonary critical care evaluation and management was 37 minutes. TARA NAYLOR MD CM:PNTRANS [id number] TARA TIJERINA MD 03/10/177 interface
--- NOTE | ~2017-03-06 | PR ---
[place], [place] PROGRESS NOTE NAME: ELIESER KAHN [facility] #: [id number] UNIT #: [id number] ROOM: [facility] DOCTOR: CAMILO HARRISON DPM BIRTHDATE: [birth year] DOS: 03/11/2017 SUBJECTIVE: The patient was seen for followup of ulceration, plantar right foot. OBJECTIVE: The ulceration is full thickness to subcutaneous tissue level. There are no signs of further erythema or drainage. No foul odor noted. Much improved from previous debridement last Wednesday and is stable. ASSESSMENT: Diabetic ulceration with infection, plantar right foot, improving. PLAN: Discontinued silver alginate dressings. Apply Bactroban and gauze dressing daily and we will reappoint with the patient on Wednesday. CAMILO HARRISON DPM CM:THI [id number] CAMILO HARRISON DPM 03/11/172022 interface
--- NOTE | ~2017-03-06 | PR ---
[place], [place] PROGRESS NOTE NAME: ELIESER KAHN [facility] #: [id number] UNIT #: [id number] ROOM: [facility] DOCTOR: TERENCE MUNIZ MD BIRTHDATE: [birth year] DOS: 03/11/2017 SUBJECTIVE: The patient is doing better. He is awake, alert, and responsive. PHYSICAL EXAMINATION: GENERAL: A pleasant gentleman in no apparent distress. VITAL SIGNS: Blood pressure 104/51, respirations 24, pulse 98, temperature 97.7. HEENT: Normocephalic, atraumatic NECK AND THYROID: Supple. No JVD, thyromegaly, or lymphadenopathy. HEART: Normal S1, S2. Regular rate and rhythm. LUNGS: Clear to auscultation and percussion. ABDOMEN: Soft. Nontender, nondistended. Bowel sounds present. EXTREMITIES: Normal ROM. No clubbing. No edema. LABORATORY DATA: Sodium 133, potassium 4.1, chloride 101, bicarbonate 22, and EGFR 49. White count 4.8, hemoglobin 9.2, hematocrit 27.5, and platelet count 51,000. ASSESSMENT: 1. Pancytopenia secondary to chemotherapy. 2. Hormone refractory metastatic prostate cancer. 3. New onset of atrial fibrillation. 4. Thrombocytopenia. PLAN: The patient needs anticoagulation, but has a history of thrombocytopenia. I will be very careful in starting the anticoagulation. We can start him at a half dose of Lovenox and once the platelet goes to a decent level, it can be converted into a full dose. I have discussed the case with RN as well as the resident. The patient is not bleeding or bruising at this time. Keep a close watch. White count is getting better. Neutropenic precautions have been taken off. Ample time was given family to ask me questions. TERENCE MUNIZ MD CM:PNTRANS [id number] TERENCE MUNIZ MD 03/12/17 2006 interface
--- NOTE | ~2017-03-06 | PR ---
[place], [place] PROGRESS NOTE NAME: ELIESER KAHN [facility] #: [id number] UNIT #: [id number] ROOM: [facility] DOCTOR: CAMILO HARRISON DPM BIRTHDATE: [birth year] DOS: 03/13/2017 SUBJECTIVE: The patient was seen for followup of ulceration, plantar right foot. OBJECTIVE: The ulceration is full thickness to subcutaneous tissue level, but it is closing centrifugally and in depth, there are no signs of purulent drainage or foul odor. No further signs of infection. The ulceration is continuing to granulate and improve with current treatment regimen. ASSESSMENT: Diabetic ulceration, plantar right foot. PLAN: Evaluation and management. Continue Bactroban and gauze dressings daily and we will reappoint with the patient on Wednesday. CAMILO HARRISON DPM CM:THI [id number] CAMILO HARRISON DPM 03/14/17 0057 interface
--- NOTE | ~2017-03-06 | PR ---
[place], [place] PROGRESS NOTE NAME: ELIESER KAHN [facility] #: [id number] UNIT #: [id number] ROOM: [facility]- DOCTOR: FRANCESCA GRANADOS DPM BIRTHDATE: [birth year] DOS: 03/15/2017 SUBJECTIVE: The patient seen for followup of ulceration, right foot. The patient is not doing well medically at this time and is still in intensive care. OBJECTIVE: Ulceration is clean and granular. No active bleeding is noted. No purulent drainage or malodor. No surrounding erythema. No signs of any infection. ASSESSMENT: Diabetic ulcer, plantar right foot. PLAN: Evaluation and management. Continue with daily dressing changes as ordered. Continue to monitor the foot. We will continue to follow while the patient is in the hospital. FRANCESCA GRANADOS DPM CM:THI [id number] FRANCESCA GRANADOS DPM 03/15/17 1320 interface
--- NOTE | ~2017-03-06 | PR ---
[place], [place] PROGRESS NOTE NAME: ELIESER KAHN [facility] #: [id number] UNIT #: [id number] ROOM: [facility] DOCTOR: DAYDAY TIJERINA MD,TARA BIRTHDATE: [birth year] DOS: 03/14/2017 PULMONARY CRITICAL CARE EVALUATION AND MANAGEMENT SUBJECTIVE: The patient was noted much more awake and alert this morning, some chest congestion was noted. He has not been noted any acute hemodynamic instability, remained stable otherwise. He has not been noted any symptoms of chest pain at this time. Nutrition support. Continued the patient with intravenous TPN administration. The patient was given Lasix. The patient has been noted with significant improvement. Diuresis was noted. However, still noted significant oral intake. OBJECTIVE: VITAL SIGNS: The vital signs of the patient, which has been recorded showed the temperature remains normal. The respiratory rate of 18-22, heart rate 85-96, and blood pressure 113/49-132/64. Intake of 3400 mL over 2900 mL. The pulse oxygen saturation on 3 liters nasal cannula is 95% with the BiPAP was noted as 98% saturation. HEENT: Acute moderate obesity. Oral mucosa still noted dry. NECK: Supple. Head was atraumatic. CARDIOVASCULAR: S1, S2 audible. LUNGS: The patient was noted with mild decreased breath sounds bilaterally. There were no wheezing or crackles. ABDOMEN: Noted soft with chronic obesity. Bowel sounds present. No tenderness. EXTREMITIES: Shows still edema with partial reduction noted from yesterday examination. VISIBLE SKIN: No lesions or rashes. MUSCULOSKELETAL: Without any acute deformities. LABORATORY DATA: Prealbumin today was noted only 26.0, which was noted somewhat better from previously as for which was noted previously on admission. The CBC today, WBC count 12.8, hemoglobin 8.7, hematocrit 26.1, and platelet count 59,000. The INR for the patient noted 1.1. The ammonia level noted as 22. The BMP of the patient of this morning, BUN 58, creatinine 1.98, and glucose of 219. Potassium 3.1. CT scan of the head that was done yesterday ordered by the primary care attending for the patient without any acute intracranial abnormalities. Stool for C. diff toxins were noted as negative. IMPRESSION: 1. The patient with acute persistent hypoxic respiratory failure for the patient was noted with basilar area of atelectasis or infiltration. 2. Resolution of the leukopenia. 3. Stable anemia and thrombocytopenia. 4. The patient with acute changes secondary to sepsis and other etiology. 5. Status post removal of the MediPort. 6. Advanced metastatic cancer of the patient of the prostate as well. 7. Atrial fibrillation. The patient with chest pain noted currently with controlled range. 8. Staphylococcus aureus bacteremia of the patient, which has been treated with [place], [place] PROGRESS NOTE NAME: ELIESER KAHN UNIT #: [id number] ROOM: [facility] DOCTOR: DAYDAY TIJERINA MD,TARA BIRTHDATE: [birth year] nafcillin. 9. Severe protein-calorie malnutrition, which was still noted. PLAN OF MANAGEMENT: Continue respiratory support with the use of the BiPAP and oxygen supplementation intermittently. Continue maximal nutritional support for the patient with TPN. Continuation of antibiotics. Bronchodilators. Aspiration precaution. Physical therapy could be done. Continue DVT prophylaxis. All other previous treatment plan of the patient previously in progress will be continued without any changes. Further change in treatment will be done based on progression of illness. Two more doses of intravenous albumin and the Lasix will be given today. Monitor kidney functions. TIME SPENT: Total time pulmonary and critical evaluation and management was 32 minutes. TARA NAYLOR MD CM:PNTRANS [id number] TARA TIJERINA MD 03/14/172228 interface
--- NOTE | ~2017-03-06 | PR ---
[place], [place] PROGRESS NOTE NAME: ELIESER KAHN [facility] #: [id number] UNIT #: [id number] ROOM: [facility] DOCTOR: DAYDAY TIJERINA MD,TARA BIRTHDATE: [birth year] DOS: 03/13/2017 SUBJECTIVE: He has been noted awake with the vocal commands, otherwise noted lethargy this morning. The patient was previously getting oxygen supplementation nasal cannula. The patient was started on the BiPAP this morning, seemed to have resulted in improvement in the wakefulness. Not been noted symptoms of chest pain. Still noted with some chest congestion. Continue getting nutrition support with TPN. The patient has not been noted with symptoms of hemoptysis or chest pain, abdominal pain. Has not been noted any abnormal bruising. Denies any headache. General weakness and fatigue persisted. There was no hematuria or hematochezia. OBJECTIVE: VITAL SIGNS: For the temperature the patient remains normal, respiratory 19-20, heart rate 96-100, blood pressure 124/68-133/57. Intake for the patient is and 54 mL. Pulse oxygen saturation 30%, BiPAP was 97% saturation. HEENT: Chronic obesity. Head was noted, atraumatic. Oral mucosa was dry. NECK: Supple. CARDIOVASCULAR: S1, S2 audible. LUNGS: The patient was noted with moderate decreased breath sounds. There were no wheezing or crackles heard. ABDOMEN: Soft with chronic obesity. EXTREMITIES: Noted as 2+ pitting edema upper and the lower extremities. LABORATORY DATA: CMP of the labs today, glucose 263, BUN 54, creatinine 1.81, sodium 135. The albumin of 1.3. Bilirubin 1.9. Digoxin level was normal. CBC of this morning, hemoglobin 9.7 and 28.0. WBC count normal, platelet count 72,000. Culture of the MediPort patient noted as no bacterial growth. Culture of the blood. The patient showed no bacterial growth either. The patient was given 1 packed RBC blood transfusion yesterday. Current hemoglobin and hematocrit. The patient noted after that with appropriate improvement. IMPRESSION: 1. The patient persistent acute respiratory failure. 2. Lethargy intermittently. 3. Sepsis for the patient was also noted. 4. The patient with resolving neutropenia related to chemotherapy. 5. Improving thrombocytopenia. 6. Chronic obesity. 7. Poor nutritional status. The patient's severe protein-calorie malnutrition as well. 8. Advanced metastatic cancer of the prostate. 9. Status post removal of the MediPort. PLAN OF TREATMENT: The patient will be started on, 2 days off Lasix 40 mg b.i.d. with 25 grams of albumin prior to that. In the meantime, other plan of therapy. The patient to be continued to progress. Obtain another prealbumin level tomorrow morning. Continue TPN. The patient until the patient due to his age. Nutritional status noted. Oral intake is appropriate. Other supportive therapy, plan of management. Continue antibiotic. The patient per [place], [place] PROGRESS NOTE NAME: ELIESER KAHN UNIT #: [id number] ROOM: [facility] DOCTOR: DAYDAY TIJERINA MD,TARA BIRTHDATE: [birth year] recommendation of Infectious Disease Services. DVT prophylaxis with the SCDs will be continued because of thrombocytopenia. Other supportive plan of management as well. Usual care. Aspiration precautions. Palliative care. Total time pulmonary critical evaluation and management was 38 minutes. TARA NAYLOR MD CM:PNTRANS 1330 [id number] TARA TIJERINA MD 03/13/171658 interface
--- NOTE | ~2017-03-06 | PR ---
[place], [place] PROGRESS NOTE [facility] [id number] UNIT #: [id number] ROOM: [facility]- DOCTOR: MELISSA SOLIS,MAY BIRTHDATE: [birth year] DOS: 03/14/2017 SUBJECTIVE: The patient is being followed for an infected MediPort. It was removed and is status post removal by Dr. Galvez. His repeat blood cultures are negative. He is not doing well today. There has been bleeding from his mouth and his nose. He is somewhat confused, status post morphine. Denies shortness of breath. Denies nausea or vomiting. He does realize he is bleeding. He continues with loose stools. C. diff was checked again and again is negative. No rash or itch. He has been afebrile. Platelets are down. Wet respirations. Family is at bedside. LABORATORY DATA: Tip culture from his MediPort from the is negative. Repeat blood cultures from the remained sterile. The original positive blood cultures from the grew MSSA. WBCs 12.8, platelets 59. Ammonia 22, BUN 58, creatinine 1.98, prealbumin 6. CURRENT MEDICATIONS: Include TPN, Lasix, potassium chloride, albumin, Lovenox, nafcillin, Xopenex, Lanoxin, Lopressor, Ditropan, Zyloprim, Prilosec, Lactinex, Compazine, Megace, Os-Abdoulaye, prednisone, Neupogen was stopped today, Biotin. PHYSICAL EXAMINATION: VITAL SIGNS: Temperature 98.8, pulse 87, respirations 23, BP 116/46. GENERAL: A 66-year-old male, quite ill in appearance. HEENT: Normocephalic. He has blood lining his mouth as well as nose, wet respirations. LUNGS: With rales bilaterally. Respirations slightly labored on O2 via nasal cannula. HEART: Regular rhythm. No murmur appreciated. CHEST: Left chest dressing dry and intact where MediPort was removed. He has PICC in place. Dressing dry and intact. No signs of phlebitis. ABDOMEN: Soft, nondistended, nontender. Positive bowel sounds. EXTREMITIES: +2 edema bilateral thighs as well as bilateral upper extremities. SKIN: Warm, dry, poor color. No rashes. ASSESSMENT: MSSA MediPort infection, status post removal of the MediPort on the as well as prostate cancer with metastasis to bone. PLAN: At this point, he has fairly poor prognosis. We will continue the nafcillin. He is currently a DNR-CCA. End of life measures have been discussed with the family and clarified per the attending. We will continue to follow. ADDENDUM After reviewing the chart, labs and radiographs, I agree with above plans as described. We will follow the patient up clinically and adjust accordingly. MAY WILL TORRES [place], [place] PROGRESS NOTE NAME: CRISSELIESER UNIT #: [id number] ROOM: [facility] DOCTOR: MELISSA SOLIS BIRTHDATE: [birth year] LEWIS DECKER MD CM:THI [phone] MAY MELISSA SOLIS 03/15/17 0830 interface
--- NOTE | ~2017-03-06 | PR ---
[place], [place] PROGRESS NOTE NAME: ELIESER KAHN [facility] #: [id number] UNIT #: [id number] ROOM: [facility] DOCTOR: DAYDAY TIJERINA MD,TARA BIRTHDATE: [birth year] DOS: 03/12/2017 SUBJECTIVE: He has been noted awake at the present time. The patient has been requiring oxygen supplementation couple of liters nasal cannula. Chest congestion was noted without any sputum expectoration. He has not been noted any symptoms of hemoptysis. He has not reported any symptoms of acute chest pain or any abdominal pain. Hemodynamically, the patient did not require any vasopressors administration. PICC line inserted. He was started on TPN yesterday successfully without any difficulty. The patient was still noted over generally weakness, fatigue, mostly noted bedbound. The patient remains well controlled. He had not been noted any confusional status. OBJECTIVE: VITAL SIGNS: For the patient which has been recorded and reviewed, shows a normal temperature last 24 hours, respiratory rate of 20-24, heart rate of 99-104, blood pressure 132/70-124/48. Pulse oxygen saturation of the patient recorded as 96% saturation with Venturi flow oxygen system via nasal cannula applied this morning with couple of liters, oxygen saturation 94%-95%. HEENT: Significant dry noted in oral mucosa. NECK: Supple. Head was atraumatic. Eyes nonicterus. CARDIOVASCULAR: S1, S2 audible. LUNGS: The patient noted general reduction in breath sounds bilaterally. There were no crackles heard. ABDOMEN: Noted with obesity. There was no tenderness. Bowel sounds are present. EXTREMITIES: Show mild edema in the upper and the lower extremities. VISIBLE SKIN: No lesions or rashes. MUSCULOSKELETAL: No deformity. Generalized weakness. The patient was noted in the central nervous system examination. LABORATORY DATA: The culture of the catheter tip at the MediPort was removed yesterday and were noted no bacterial growth at the present time. The CMP of patient that was done again 03/12/2017, BUN 47, creatinine 1.62, glucose 371. The sodium was noted 134. CBC for the patient of 03/12/2017, hemoglobin 7.9, hematocrit 28.1, platelet count 52,000. WBC count was noted normal. Blood culture from the 03/06/2017, this month showed no bacterial growth. The chest x-ray that was done yesterday after the insertion of the PICC line for the patient noted. Appropriately placed PICC line for the patient, peripherally inserted with the tip noted in the superior vena cava and right atrial junction in excellent position. No acute visible pulmonary infiltration, pleural fluids or other abnormalities. Cardiomegaly was visible, may be accentuated because of the portable film. IMPRESSION: 1. The patient was being currently noted with acute respiratory failure with anuria of atelectasis lower lungs. 2. Chest congestion. The patient noted mostly secondary retained secretion. 2. Mild peripheral edema. 3. Severe protein-calorie malnutrition, hyperglycemia. The patient was noted with the use of the TPN as well. The patient is getting sliding scale insulin [place], [place] PROGRESS NOTE NAME: ELIESER KAHN UNIT #: [id number] ROOM: [facility] DOCTOR: DAYDAY TIJERINA MD,TARA BIRTHDATE: [birth year] coverage. 4. The patient with resolved neutropenia. 5. Anemia was noted stable. Thrombocytopenia, also remained stable. 6. Acute advanced metastatic cancer of the prostate. 6. Chronically suspected obstructive sleep apnea disorder as well. 7. Electrolyte imbalance. 8. Acute kidney: The patient with mild increase of creatinine noted, may be related to TPN administration. PLAN OF MANAGEMENT: Addition of the insulin. The TPN would be considered to reduce the hyperglycemia. Continue other additional coverage with the sliding scale insulin for the patient. Continue to follow aspiration precaution. Oxygen supplementation, maintain saturation 90% or greater. Close aspiration precaution. Close monitor. Vital signs will be continued. Monitor for any hemodynamic instability. All other treatment plan as previously; otherwise, ordered will be continued. Usual care. Monitor chest x-ray as needed. TIME SPENT: Total time pulmonary and critical care management for the patient today was 35 minutes. TARA NAYLOR MD CM:PNTRANS [id number] TARA TIJERINA MD 03/12/17 9167 interface
--- NOTE | ~2017-03-06 | PR ---
[place], [place] PROGRESS NOTE NAME: ELIESER KAHN [facility] #: [id number] UNIT #: [id number] ROOM: [facility] DOCTOR: MELISSA SOLIS,MAY BIRTHDATE: [birth year] DOS: 03/13/2017 SUBJECTIVE: The patient is an unfortunate 66-year-old male with metastatic prostate CA, metastasis to the bone, who was admitted with sepsis. He has had an MSSA infection of his MediPort. The MediPort was removed on the and the wound was packed per Dr. Galvez. His blood cultures were originally positive for MSSA on the . Repeat blood cultures from the showed clearing. He was also checked for C. diff on the that was negative. He had a wound culture from his right foot, which also grew MSSA. He has been afebrile. He just went for CT of the head due to some lethargy, though nursing states his condition overall has been improving. He has been afebrile. No emesis. He is having some diarrhea. Denies shortness of breath. Denies pain. He has systemic edema. He is currently on TPN. Further review of systems is unremarkable. CURRENT LABORATORY DATA: Cultures as reviewed above. WBC is 9.6, platelets 72. BUN 54, creatinine 1.81. CURRENT MEDICATIONS: Lasix, albumin, TPN, Lovenox, nafcillin 2 grams IV q. 4 hours, Xopenex, Lopressor, Lanoxin, Ditropan, Zyloprim, Prilosec, amiodarone, Lactinex, Compazine, ____, Os-Abdoulaye, Megace, prednisone, Neupogen, Zofran. PHYSICAL EXAMINATION: VITAL SIGNS: Show temperature 97.2, pulse 96, respirations 22, BP 114/57. GENERAL: A 66-year-old male, in no acute distress. HEAD. EYES. EARS, NOSE AND THROAT: Normocephalic. He has sores along his tongue. It is coated with dried blood as well as his posterior oropharynx has dried blood. No signs of thrush or fungal infection. NECK: Supple. LUNGS: Clear to auscultation bilaterally. Respirations even and unlabored, on O2 via nasal cannula. HEART: Regular rhythm. No murmur appreciated. ABDOMEN: Soft, nontender, positive bowel sounds. EXTREMITIES: +2 to 3 edema of all 4 extremities. He has PICC in the right upper extremity. Dressing dry and intact. No signs of phlebitis. Left chest where his MediPort was removed, the wound is bloody. There is no surrounding erythema. Right plantar foot with rather superficial wound, which is clean, pink. No odor or cellulitis. SKIN: Otherwise warm, dry, free of rashes. ASSESSMENT: Methicillin-susceptible Staphylococcus aureus septicemia, which is resolving, due to infected MediPort, status post removal on the in a patient who is immune compromised. He has metastatic prostate cancer with metastasis to the bone. PLAN: Continue the nafcillin for 2 weeks from the time the MediPort was removed. Case discussed with Dr. Lewis Decker. [place], [place] PROGRESS NOTE NAME: ELIESER KAHN UNIT #: [id number] ROOM: [facility] DOCTOR: MELISSA SOLISMAY BIRTHDATE: [birth year] POP TORRES CNP LEWIS DECKER MD CM:THI [id number] MAY MELISSA SOLIS 03/13/17 2837 interface
--- NOTE | ~2017-03-06 | PR ---
[place], [place] PROGRESS NOTE NAME: [id number] UNIT #: [id number] ROOM: [facility] DOCTOR: DAYDAY TIJERINA MD,TARA BIRTHDATE: [birth year] DOS: 03/10/2017 SUBJECTIVE: The patient was seen and examined on 03/10/2017. He has been still noted with confusion at time, but noted comfortable at this time using the BiPAP with 45% oxygen supplementation. The oxygen requirement was noted to decrease for the patient as compared with yesterday. The patient was continued on the BiPAP setting, it remains the same. He has been noted with intermittent tachycardia with heart rate being evaluated again this morning, which has been treated with IV Lopressor resulting in the reduction in the heart rate. This morning noted as a heart rate of 105 beats per minute with atrial fibrillation/flutter at times. He has not been noted any hemodynamic instability otherwise. He did not require any vasopressor therapy. Chest congestion was noted somewhat better. Tachypnea was also noted somewhat decreased. OBJECTIVE: VITAL SIGNS: For the patient which were recorded showed the temperature and low grade 99.2 degree Fahrenheit to normal temperature, respiratory rate of 22-37 previously, the heart rate was noted at 102-152 earlier. Blood pressure ranges between 108/64 - 124/62. Intake for the patient was recorded at 1318 mL, output was 351 mL ___. Pulse oxygen saturation with the BiPAP for the patient 45% oxygen 97% on 3 liters nasal cannula 100% saturation. HEENT: Chronic moderate obesity. NECK: Supple and obese. CARDIOVASCULAR: S1, S2 is audible. LUNGS: Noted with moderate decreased breath sounds, occasional scattered crackles without any wheezing. ABDOMEN: Noted soft, moderate obesity, bowel sounds present. EXTREMITIES: Noted with minimal edema. SKIN: Visible skin with no lesions or rashes. MUSCULOSKELETAL: No acute deformities. LABORATORY DATA: Today, CBC: WBC count 1.8, hemoglobin 8.9, hematocrit 26.1, platelet count 40,000. Arterial blood gas pH of 7.40, pCO2 33.45, pO2 111 on 45% oxygen with BiPAP. Prealbumin noted only 4. Ionized calcium noted decreased at 3.72. CMP today; glucose 192, BUN and creatinine normal, sodium 134. Albumin 1.6. Total bilirubin 1.1. The vancomycin trough level 24.5. IMPRESSION: 1. The patient with acute respiratory failure, was noted at this time with ongoing tracheobronchitis. 2. Severe pancytopenia related to chemotherapy with partial improvement in the leukopenia noted. Thrombocytopenia and anemia were still noted. 3. The patient with immunosuppression secondary to chemotherapy. 4. Metastatic advanced prostate cancer to the bones as well. 5. Very severe protein calorie malnutrition status as well. 6. The patient with atrial fibrillation with intermittent rapid ventricular response. 7. Moderate obesity as well for the possibility of obstructive sleep apnea disorder would be considered. [place], [place] PROGRESS NOTE NAME: ELIESER KAHN UNIT #: [id number] ROOM: [facility] DOCTOR: DAYDAY TIJERINA MD,TARA BIRTHDATE: [birth year] PLAN OF TREATMENT: Continue antibiotics, bronchodilators. Adjustment of vancomycin trough level for the patient to be done. Monitoring medical management of all known infections. Continue use of the BiPAP. At this time, the patient would not be need any intubation and mechanical ventilation; however, would be considered in case of worsening of the respiratory status with increased chest congestion, inability to handle secretions. Hypocalcemia was confirmed , which will be treated with calcium supplement. Nutrition support to be done to avoid TPN for this patient. At the present time, try the patient on ___ nutrition for the patient initially. As the neutropenia improves, certainly consider TPN if necessary. The insertion of the NG tube for the patient will be noted with increased morbidity such as a result of bleeding because of severe thrombocytopenia. DVT prophylaxis with the SCDs to be continued. Aspiration precautions. Additional treatment changes of the patient needs to be done based on progression of the illness. Usual care. PROGNOSIS: The patient remains critical at the present time. Total time for the pulmonary critical care evaluation and management was 38 minutes. TARA NAYLOR MD CM:PNTRANS 1652 TARA TIJERINA MD 03/11/17 0203 interface
--- NOTE | ~2017-03-06 | PR ---
[place], [place] PROGRESS NOTE [id number] UNIT #: [id number] ROOM: [facility] DOCTOR: TERENCE MUNIZ MD BIRTHDATE: [birth year] DOS: 03/15/2017 SUBJECTIVE: The patient is doing better. He is alert, oriented, responds to verbal command. REVIEW OF SYSTEMS HEENT: No trouble swallowing. No double vision. No loss of vision. No pain. ENT AND RESPIRATORY: No wheeze. No change in voice. No cough. No shortness of breath. No coughing up blood. No epistaxis. CARDIOLOGIC: No chest pain. No dizziness. No irregular heartbeat. No leg edema. No palpitations. No shortness of breath. HEMATOLOGIC AND LYMPH: No past transfusion. No fatigue. No loss of appetite. No easy bruising. GASTROENTEROLOGIC: No change in bowel habits. No vomiting blood. No abdominal cramping. No nausea. No vomiting. No diarrhea. No constipation. No blood in stool. MALE REPRODUCTIVE: No testicular pain. No penile discharge. MUSCULOSKELETAL: No back pain. No muscle pain or weakness. No tingling/numbness. UROLOGIC: No pain with urination. No difficulty urinating. No frequent urination. NEUROLOGIC: No burning pain in feet. No trouble with coordination. No loss of consciousness. No headache. No tingling/numbness. No memory loss. PHYSICAL EXAMINATION: GENERAL: Pleasant gentleman in no apparent distress. VITAL SIGNS: Stable. He is afebrile. HEENT: Normocephalic, atraumatic NECK AND THYROID: Supple. No JVD, thyromegaly, or lymphadenopathy. HEART: Normal S1, S2. Regular rate and rhythm. LUNGS: Clear to auscultation and percussion. ABDOMEN: Soft. Nontender, nondistended. Bowel sounds present. EXTREMITIES: Normal ROM. No clubbing. No edema. LABORATORY DATA: White count of 12.8, hemoglobin 8.7, hematocrit 26.1, platelet count 59,000. CBC, 03/15/2017: White count of 9.6, hemoglobin 7.9, hematocrit 24.4, platelet count 50,000. Chemistries: Glucose of 207, EGFR is 30, sodium 140, potassium 3.1, chloride 104, bicarbonate 25, calcium total 7.6, phosphorus 4.9, magnesium 1.6. ASSESSMENT: 1. Hormone refractive metastatic prostate cancer. 2. Anemia of neoplastic disorder. 3. Thrombocytopenia secondary to chemotherapy/bone marrow suppression/medications. 4. Staphylococcus aureus bacteremia. PLAN: Overall, he is doing better and better. We will continue with the present management, transfusion p.r.n. basis. He will continue current treatment for his DVT. I had a detailed discussion with the family about it, [place], [place] PROGRESS NOTE NAME: ELIESER KAHN UNIT #: [id number] ROOM: [facility] DOCTOR: TERENCE MUNIZ MD BIRTHDATE: [birth year] seemed to understand it. Ample time was given to the family to ask me questions. TERENCE MUNIZ MD CM:PNTRANS [id number] [id number] TERENCE MUNIZ MD 03/16/17 0023 interface
--- NOTE | ~2017-03-06 | PR ---
[place], [place] PROGRESS NOTE NAME: ELIESER KAHN [facility] #: [id number] UNIT #: [id number] ROOM: [facility] DOCTOR: DAYDAY TIJERINA MD,TARA BIRTHDATE: [birth year] DOS: 03/11/2017 SUBJECTIVE: The patient was seen and examined on 03/11/2017 in Intensive Care Unit. He has been using the BiPAP. Later on started on the high flow Venturi flow system of oxygen with the nasal cannula and pillows device. The patient's oxygen saturation was well maintained 45% oxygen at this morning. He had been noted much more awake and alert. The patient was reported reduction in symptoms of shortness of breath and cough. There was no chest pain. He was continued to get the PEEP for parenteral nutrition, which has been tolerated. He had not reported abdominal pain, chronic pain second metastatic cancer of the prostate. The patient essentially remains stable with current pain management. He had now been treated for dizziness, headache. The tachycardia has been noted progressive improvement. However, intermittent rapid ventricular response with atrial fibrillation was noted. OBJECTIVE: VITAL SIGNS: For the patient this morning, heart rate was noted 155 and previously noted as 102. The respiratory rate range between 17-32, temperature was normal. The blood pressure 125/50-124/62. Intake is 1764 mL of 725 mL. Pulse oxygen saturation with the BiPAP and a Venturi flow oxygen supplementation was noted as 98% saturation. GENERAL: Chronic moderate obesity. HEENT: Head was atraumatic. NECK: Supple. CARDIOVASCULAR: S1, S2 was audible. LUNGS: The patient was noted without any crackles at the present time. ABDOMEN: Noted soft moderate without any tendon. SKIN: Visible skin. No lesions or rashes. EXTREMITIES: The patient shows mild edema. CENTRAL NERVOUS SYSTEM: No deformities. LABORATORY DATA: Lactic acid this morning was noted 2.0. With previous CT scan of the chest assessment small area of atelectasis noted in the left lower lung. The CMP shows today, BUN 36, creatinine 1.45, glucose 293. Sodium 133. Albumin 1.5. Dig level mildly elevated 2.04. CBC this morning: WBC count 4.8 with normal WBC count, resolution of the severe leukopenia. Hemoglobin 9.2, hematocrit 27.5, platelet count also noted mildly improved 51,000. IMPRESSION: The patient was currently noted with acute hypoxic respiratory failure result of the acute atelectasis in the left lower lobe ____ mucus impaction, possible pneumonia cannot be excluded and being treated with antibiotic. Thank you resolution of the leukopenia with improving immunosuppression. 1. Improving thrombocytopenia as well. 2. History of metastatic cancer of the prostate with the chemotherapy previously as well. 3. Possible infection of MediPort. The patient has recommended about removal of the MediPort by the Infectious Disease services which will be done today. 4. Very severe protein-calorie malnutrition as well. [place], [place] PROGRESS NOTE NAME: ELIESER KAHN UNIT #: [id number] ROOM: [facility] DOCTOR: DAYDAY TIJERINA MD,TARA BIRTHDATE: [birth year] 5. Severe debility, persistent with moderate obesity. Possibility of obstructive sleep apnea disorder can be excluded. We will proceed with the MediPort removal. The patient preferred parental nutrition will be changed to the total parenteral nutrition and will require the insertion of either new multi-lumen catheter or PICC line for the administration. Continue current antibiotics, which as per recommendation of Infectious Disease Services. Monitor kidney function closely as well with physical therapy as tolerated, could be started at the bedside. Monitoring the anemia and thrombocytopenia or any abnormal bleeding. Continue adequate pain control. Continue oxygen supplementation, use of the BiPAP intermittently. Other supportive therapy, plan of management. Monitor chest x-ray as well. Total time taken for pulmonary critical care evaluation and management for this patient was 33 minutes. TARA NAYLOR MD CM:PNTRANS 1720 [id number] TARA TIJERINA MD 03/12/17 0230 interface
--- NOTE | ~2017-03-06 | PR ---
[place], [place] PROGRESS NOTE NAME: ELIESER KAHN [facility] #: [id number] UNIT #: [id number] ROOM: [facility] DOCTOR: TERENCE MUNIZ MD BIRTHDATE: [birth year] DOS: 03/09/2017 SUBJECTIVE: The patient is doing better. He is on BiPAP. REVIEW OF SYSTEMS HEENT: No trouble swallowing. No double vision. No loss of vision. No pain. ENT AND RESPIRATORY: No wheeze. No change in voice. No cough. No shortness of breath. No coughing up blood. No epistaxis. CARDIOLOGIC: No chest pain. No dizziness. No irregular heartbeat. No leg edema. No palpitations. No shortness of breath. HEMATOLOGIC AND LYMPH: No past transfusion. No fatigue. No loss of appetite. No easy bruising. GASTROENTEROLOGIC: No change in bowel habits. No vomiting blood. No abdominal cramping. No nausea. No vomiting. No diarrhea. No constipation. No blood in stool. MALE REPRODUCTIVE: No testicular pain. No penile discharge. MUSCULOSKELETAL: No back pain. No muscle pain or weakness. No tingling/numbness. UROLOGIC: No pain with urination. No difficulty urinating. No frequent urination. NEUROLOGIC: No burning pain in feet. No trouble with coordination. No loss of consciousness. No headache. No tingling/numbness. No memory loss. PHYSICAL EXAMINATION GENERAL: He is a pleasant gentleman in no apparent distress. VITAL SIGNS: Stable. He is afebrile. HEENT: Normocephalic, atraumatic NECK AND THYROID: Supple. No JVD, thyromegaly, or lymphadenopathy. HEART: Normal S1, S2. Regular rate and rhythm. LUNGS: Clear to auscultation and percussion. ABDOMEN: Soft. Nontender, nondistended. Bowel sounds present. EXTREMITIES: Normal ROM. No clubbing. No edema. LABORATORY DATA: White count of 0.5, hemoglobin of 9.1, hematocrit 27.0, platelets 37,000. ASSESSMENT: 1. Pancytopenia secondary to chemotherapy. 2. Metastatic hormone refractory prostate cancer with metastatic disease to the bones. 3. Sepsis. 4. Bacteremia. Cultures positive for Staphylococcus aureus, probably secondary to MediPort infection. 5. Paroxysmal atrial fibrillation. PLAN: The patient will continue growth factors. He continues to be in isolation. Broad spectrum antibiotics will be continued. I have reviewed some [facility] Transfusion p.r.n. basis. I expect the counts to improve once overall condition improves. I discussed with the patient in detail. [place], [place] PROGRESS NOTE NAME: ELIESER KAHN UNIT #: [id number] ROOM: [facility] DOCTOR: TERENCE MUNIZ MD BIRTHDATE: [birth year] TERENCE MUNIZ MD CM:PNTRANS 07 TERENCE MUNIZ MD 03/09/172307 interface
--- NOTE | ~2017-03-06 | CON ---
[place], [place] REPORT OF CONSULTATION NAME: ELIESER KAHN [facility] #: [id number] UNIT #: [id number] ROOM: [facility] DOCTOR: CAMILO HARRISON DPM BIRTHDATE: [birth year] DOS: 03/07/2017 SUBJECTIVE: The patient presents with chief complaint of diabetic ulceration to the bottom of the right foot, who has been having it for approximately 2 weeks. The patient has assessment of severe sepsis, right foot wound cellulitis, possible pneumonia, severe natremia, neutropenia, pancytopenia, epigastric abdominal pain, nausea. No vomiting. Hyponatremia; elevated bilirubin; general weakness; unsteady gait; metastatic prostate CA to the bone, currently on chemo; immunocompromise secondary to chemo; type 2 diabetes; atrial fibrillation; CAD with history of stent; hypertension; history of gout; HLD; GERD. LOWER EXTREMITY EXAMINATION: Pedal pulses palpable, but diminished. Decreased epicritic sensations, decreased hair growth, ulceration, plantar aspect second right MPJ with necrotic nonviable tissue which was debrided excisionally to through subcutaneous tissue level. There are no signs of deep sinus tract. No signs of abscess, no edema. Digital deformity of the second toe, hammertoe deformity with contracture at the PIPJ and MPJ causing the ulcerative lesion. After debridement, the ulceration measured 5.1 cm in length x 3.9 cm in width x 0.1 cm in depth. ASSESSMENT: Diabetic ulceration, plantar aspect second right metatarsophalangeal joint. PLAN: Evaluation and management. Full thickness excisional debridement to through subcutaneous tissue level performed to debride necrotic nonviable tissue excisionally. Culture and sensitivity of the wound culture was ordered for the ulcerative site. Continue antibiotics per Infectious Disease. Ordered silver alginate and gauze dressing to be applied daily. Reviewed the patient's radiographs which revealed no gas within the soft tissue. No signs of osteomyelitis. Digital deformity noted. Results of the arterial Doppler revealed reduced HANNY index on the right, moderately reduced HANNY on the left. Waveform analysis demonstrates no focal stenosis or occlusion. Again, the HANNY was 0.40 on the right, 0.76 on the left. I will monitor the patient and on Wednesday if no improvement to the wound, possible Vascular consultation, but at this time, the patient would not be a candidate for elective vascular intervention due to his acute medical problems and sepsis. The patient also had positive blood culture. Again, antibiotics will be per Infectious Disease and I will follow with the foot again on Wednesday, but at this time, it does not appear that any aggressive surgical intervention is warranted and local wound care and antibiotics should be sufficient. [place], [place] REPORT OF CONSULTATION NAME: ELIESER KAHN UNIT #: [id number] ROOM: [facility] DOCTOR: CAMILO HARRISON DPM BIRTHDATE: [birth year] CAMILO HARRISON DPM CM:CONSTR:REPORT OF CONSULTATION 1106 03/10/17 0756 interface
--- NOTE | ~2017-03-06 | PR ---
[place], [place] PROGRESS NOTE NAME: ELIESER KAHN [facility] #: [id number] UNIT #: [id number] ROOM: [facility] DOCTOR: TERENCE MUNIZ MD BIRTHDATE: [birth year] DOS: 03/12/2017 SUBJECTIVE: The patient is doing better. He had atrial fibrillation with rapid ventricular response and he was converted to normal sinus rhythm. He is slightly doing better. REVIEW OF SYSTEMS: HEENT: No trouble swallowing. No double vision. No loss of vision. No pain. ENT AND RESPIRATORY: No wheeze. No change in voice. No cough. No shortness of breath. No coughing up blood. No epistaxis. CARDIOLOGIC: No chest pain. No dizziness. No irregular heartbeat. No leg edema. No palpitations. No shortness of breath. HEMATOLOGIC AND LYMPH: No past transfusion. No fatigue. No loss of appetite. No easy bruising. GASTROENTEROLOGIC: No change in bowel habits. No vomiting blood. No abdominal cramping. No nausea. No vomiting. No diarrhea. No constipation. No blood in stool. MALE REPRODUCTIVE: No testicular pain. No penile discharge. MUSCULOSKELETAL: No back pain. No muscle pain or weakness. No tingling/numbness. UROLOGIC: No pain with urination. No difficulty urinating. No frequent urination. NEUROLOGIC: No burning pain in feet. No trouble with coordination. No loss of consciousness. No headache. No tingling/numbness. No memory loss. PHYSICAL EXAMINATION: GENERAL: Pleasant gentleman in no apparent distress. VITAL SIGNS: Blood pressure 133/67, respirations 24, pulse 98, and temperature 97.8. HEENT: Normocephalic, atraumatic NECK AND THYROID: Supple. No JVD, thyromegaly, or lymphadenopathy. HEART: Normal S1, S2. Regular rate and rhythm. LUNGS: Clear to auscultation and percussion. ABDOMEN: Soft. Nontender, nondistended. Bowel sounds present. EXTREMITIES: Normal ROM. No clubbing. No edema. LABORATORY DATA: Sodium 134, potassium 3.5, chloride 101, and bicarbonate 23. AST is 25, ALT 16. White count of 4.8. CBC is pending. ASSESSMENT: 1. Hormone refractory prostate cancer. 2. Progressive thrombocytopenia secondary to chemotherapy. 3. Anemia of neoplastic disorder. 4. Atrial fibrillation, now converted to normal sinus rhythm. PLAN: We will continue anticoagulation and half the dose until his platelet counts get better and it can be converted to a full dose. Discussed. [place], [place] PROGRESS NOTE NAME: ELIESER KAHN UNIT #: [id number] ROOM: [facility] DOCTOR: TERENCE MUNIZ MD BIRTHDATE: [birth year] TERENCE MUNIZ MD CM:PNTRANS 1003 06 TERENCE MUNIZ MD 03/12/17 2006 interface
--- NOTE | ~2017-03-06 | PR ---
[place], [place] PROGRESS NOTE NAME: ELIESER KAHN [facility] #: [id number] UNIT #: [id number] ROOM: [facility] DOCTOR: CAMILO HARRISON DPM BIRTHDATE: [birth year] DOS: 03/09/2017 SUBJECTIVE: The patient was seen for followup ulceration, plantar right foot. OBJECTIVE: Upon removal of dressing, the ulceration, plantar second right MPJ is much improved from previous exam on Wednesday. The ulceration is full thickness, but no signs of deep sinus tract. No erythema, no acute drainage, granulating well at this time. Results of the wound culture revealed Staph aureus. ASSESSMENT: Diabetic ulceration, plantar right foot with Staphylococcus aureus infection. PLAN: Evaluation and management. Continue silver alginate dressing daily. I will recheck the patient later in the week if he is still in house. The ulceration at this time is stable and does not need further debridement at this time. CAMILO HARRISON DPM CM:PNTRANS [id number] CAMILO HARRISON DPM 03/09/17 1307 interface
--- NOTE | ~2017-03-06 | PR ---
[place], [place] PROGRESS NOTE [facility]: [id number] UNIT #: [id number] ROOM: [facility] DOCTOR: TERENCE MUNIZ MD BIRTHDATE: [birth year] DOS: 03/14/2017 SUBJECTIVE: The patient is not alert, not much responsive. REVIEW OF SYSTEMS HEENT: No trouble swallowing. No double vision. No loss of vision. No pain. ENT AND RESPIRATORY: No wheeze. No change in voice. No cough. No shortness of breath. No coughing up blood. No epistaxis. CARDIOLOGIC: No chest pain. No dizziness. No irregular heartbeat. No leg edema. No palpitations. No shortness of breath. HEMATOLOGIC AND LYMPH: No past transfusion. No fatigue. No loss of appetite. No easy bruising. GASTROENEROLOGIC: No change in bowel habits. No vomiting blood. No abdominal cramping. No nausea. No vomiting. No diarrhea. No constipation. No blood in stool. MALE REPRODUCTIVE: No testicular pain. No penile discharge. MUSCULOSKELETAL: No back pain. No muscle pain or weakness. No tingling/numbness. UROLOGIC: No pain with urination. No difficulty urinating. No frequent urination. NEUROLOGIC: No burning pain in feet. No trouble with coordination. No loss of consciousness. No headache. No tingling/numbness. No memory loss. PHYSICAL EXAMINATION GENERAL: Pleasant gentleman. VITAL SIGNS: Blood pressure 120/52, respiratory rate 22, pulse 89, temperature 97.0. HEENT: Normocephalic, atraumatic NECK AND THYROID: Supple. No JVD, thyromegaly, or lymphadenopathy. HEART: Normal S1, S2. Regular rate and rhythm. LUNGS: Clear to auscultation and percussion. ABDOMEN: Soft. Nontender, nondistended. Bowel sounds present. EXTREMITIES: Normal ROM. No clubbing. No edema. LABORATORY DATA: White cell count 12.8, hemoglobin 8.7, hematocrit 26.1, platelet count of 59,000. Sodium 137, potassium 3.1, chloride 100, bicarbonate 25, calcium of 7.8. ASSESSMENT: 1. Hormone refractory metastatic prostate cancer. 2. Thrombocytopenia. 3. Sepsis. 4. Leukopenia, which is resolved. PLAN: Stop the growth factors. Continue broad spectrum antibiotics, transfusion on p.r.n. basis as well as the platelets are dropping further intervention discussed with the family. Overall, prognosis is not good. [place], [place] PROGRESS NOTE NAME: ELIESER KAHN UNIT #: [id number] ROOM: [facility] DOCTOR: TERENCE MUNIZ MD BIRTHDATE: [birth year] TERENCE MUNIZ MD CM:PNTRANS 1740 0002 TERENCE MUNIZ MD 03/15/17 0002 interface
--- NOTE | ~2017-03-06 | PR ---
[place], [place] PROGRESS NOTE NAME: ELIESER KAHN [facility] #: [id number] UNIT #: [id number] ROOM: [facility] DOCTOR: DAYDAY TIJERINA MD,TARA BIRTHDATE: [birth year] DOS: 03/16/2017 SUBJECTIVE: The patient was noted more awake and alert, better than yesterday. The mental status changes are noted much better. The oxygen requirement was noted with nasal cannula of oxygen this morning, the patient does respond to the vocal commands. He has been continued with all the supportive care and palliative care including his other medical management with the TPN as well. The patient remained n.p.o. There has not been any abnormal bleeding noted. Skin was noted without any ulcers. The patient denies any headache. Overall, generalized weakness and fatigued noted. He was noted bedbound. PHYSICAL EXAMINATION: VITAL SIGNS: Temperature remains normal, respiratory rate 19-20, heart rate 103-94, blood pressure is 127/60-146/68. Intake 2700 mL, output 2800 mL. Pulse oxygen saturation on 3 liters nasal cannula 98% saturation. BiPAP was 98% saturation as well. HEENT: Oral mucosa remains extremely dry with some clotted blood in the mouth. Eyes nonicterus. NECK: Supple. Obese. CARDIOVASCULAR: S1, S2 audible. LUNGS: Noted with moderate decreased breath sounds in the lungs bilaterally. There were no wheezing or crackles. ABDOMEN: Soft and obese. EXTREMITIES: Shows mild edema. SKIN: Visible exam, no lesions or rashes. LABORATORY DATA: CBC today: WBC count 6.8, hemoglobin 8.4, hematocrit 25.4, platelet count of 51,000, 80% segmented neutrophils with differentials. CMP: Glucose 237, BUN 64, creatinine 1.94. Bilirubin 1.4, albumin of 1.8. Total protein 5.5. IMPRESSION: 1. The patient with persistent acute hypoxic respiratory failure, respiratory congestion and cough. 2. The patient with acute persistent respiratory failure as well. 3. The patient with severe anemia remains persistent. The bleeding from the mouth has been improved and resolved. Dryness of the oral mucosa was noted. 4. Severe protein-calorie malnutrition remains persistent. 5. Acute kidney injury was noted partially improved. 6. Severe generalized weakness and fatigue. PLAN OF TREATMENT: The patient will be continued on the current plan of management. The TPN, antibiotics, bronchodilators. All other supportive care including respiratory support for this patient with the BiPAP and oxygen supplementation. Additional treatment changes for the patient will be done based on the progression of the illness. Usual care. Additional medical management per other consultants. [place], [place] PROGRESS NOTE NAME: ELIESER KAHN UNIT #: [id number] ROOM: [facility] DOCTOR: TARA WEBB MD BIRTHDATE: [birth year] TARA NAYLOR MD CM:PNTRANS [phone] TARA TIJERINA MD 03/17/17 0354 interface
--- NOTE | ~2017-03-06 | PR ---
[place], [place] PROGRESS NOTE NAME: ELIESER KAHN [facility] #: [id number] UNIT #: [id number] [facility] DOCTOR: SWETA CRENSHAW MD BIRTHDATE: [birth year] DOS: 03/08/2017 CARDIOLOGY PROGRESS NOTE SUBJECTIVE: The patient was seen at his bedside today in the intensive care unit on 03/08/2017 for followup of his atrial arrhythmias. He is a 66-year-old man with prostate cancer and multiple bone metastases. He has been on chemotherapy and has received 3 courses thus far. He is pancytopenic from the chemotherapy and is an immunocompromised host. He presented to the hospital with atrial fibrillation, rapid ventricular response and apparent heart failure along with gram-positive sepsis. Yesterday, he did convert to sinus rhythm, but has converted back to atrial flutter with a heart rate of about 150 this morning. Since yesterday, he has diuresed over 4 liters and his chest x-ray does look somewhat better, but is still consistent with congestive heart failure. He also is being evaluated and managed by the Infectious Disease Service. The identity of the organism in his blood has not yet been released. PHYSICAL EXAMINATION: VITAL SIGNS: Today, his pulse is 150 and regular; blood pressure is 117/62. He has temperature of 99.0. He appears very lethargic and is tachypnea. NECK: Supple. I cannot see jugular distention. Carotids are full. LUNGS: Respirations are unlabored. His chest has decreased breath sounds with crackles at the bases. HEART: Has a rapid, fairly regular rhythm. I could not hear any murmurs or gallops. ABDOMEN: Obese. EXTREMITIES: Showed no obvious edema. IMAGING: Chest x-ray this morning continues to show evidence for vascular congestion. LABORATORY DATA: Today shows a white count of 300, hemoglobin 8.9, hematocrit 26.1. INR was not repeated today, but was 1.3 two days ago. Sodium is 131, potassium 3.2, BUN 12, creatinine 0.67, calcium is 6.7 with a total protein of 4.8 and albumin of 1.8. IMPRESSION: 1. Paroxysmal atrial fibrillation and flutter. The patient has converted back to atrial flutter this morning. Thus far an amiodarone drip has not controlled his rhythm or his rate. 2. Sepsis with gram-positive cocci in clusters in his blood, origin may be an infected catheter (patient does have a MediPort) or a diabetic foot ulcer. He also appears to have urinary tract infection. 3. Diabetes mellitus. 4. Essential hypertension. 5. Obesity. 6. Gout. 7. Immunocompromised host. PLAN: We will re-bolus him with the amiodarone and continue diuresis for his [place], [place] PROGRESS NOTE NAME: ELIESER KAHN [facility] #: [id number] UNIT #: [id number] ROOM: [facility] DOCTOR: SWETA CRENSHAW MD BIRTHDATE: [birth year] pulmonary vascular congestion. We will continue to follow him closely in the intensive care unit with his other physicians. I thank the hospitalist physicians for asking our advice regarding his care. SWETA CRENSHAW MD CM:PNTRANS [phone] SWETA CRENSHAW MD 03/08/17 1045 interface
[~2017-03-06 07:44] MED LIST: AUGMENTIN 875 M1 TAB PO; CIPRODEX 0.3%-7.5 ML OT
[2017-03-06] MEDS ORDERED: ATORVASTATIN CA40 M1 PO (07:51)
[2017-03-06] MEDS ORDERED: JANUVIA100 MG PO (07:51)
[2017-03-06] MEDS ORDERED: ELIQUIS5 M1 PO (07:51)
[2017-03-06] MEDS ORDERED: OMEPRAZOLE D/R20 MG PO (07:52)
[2017-03-06] MEDS ORDERED: METOPROLOL TART50 M1 PO (07:52)
[2017-03-06] MEDS ORDERED: MEGACE40 MG PO (07:52)
[2017-03-06] MEDS ORDERED: OXYBUTYNIN CHLOR5 MG PO (07:53)
[2017-03-06] MEDS ORDERED: PREDNISONE5 MG PO (07:53)
[2017-03-06] MEDS ORDERED: TAMSULOSIN HCL0.4 MG PO (07:54)
[2017-03-06] MEDS ORDERED: PROCHLORPERAZIN10 M1 PO (07:54)
[2017-03-06] MEDS ORDERED: PROPAFENONE HC150 MG PO (07:54)
[2017-03-06] MEDS ORDERED: ALLOPURINOL300 MG PO (07:54)
[2017-03-06] MEDS ORDERED: CALCIUM + VITA1 EAC2 PO (07:55)
[2017-03-06] MEDS ORDERED: KLOR-CON M2020 ME1 PO ×2 (07:56→09:07)
[2017-03-06] MEDS ORDERED: VIRT-PHOS 250250 MG PO (07:56)
[2017-03-06] MEDS ORDERED: ZOMETA4 MG/5 ML IV (07:57)
[2017-03-06] MEDS ORDERED: LUPRON DEPOT3.75 M1 IM (07:57)
[2017-03-06] MEDS ORDERED: DEXAMETHASONE6 MG PO (07:58)
[2017-03-06] MEDS ORDERED: DEXAMETHASONE1 MG PO (07:59)
[2017-03-06] MEDS ORDERED: DEXAMETHASONE2 MG PO (07:59)
[2017-03-06] MEDS ORDERED: AMLODIPINE BESYL5 MG PO (08:00)
[2017-03-06 08:18] LABS: HEMATOCRIT 29.4 % (42.0-52.0); HEMOGLOBIN 10.3 g/dl (14.0-18.0); MEAN CELL VOLUME 91.9 fl (80.0-94.0); MEAN CORPUSCULAR HGB 32.2 pg (27.0-31.0); MEAN PLATELET VOLUME 12.4 fl (9.6-12.3); PLATELET COUNT AUTOMATED 57 10*3/uL (130-400); RED CELL DISTRI WIDTH 16.9 % (0-14.5)
[2017-03-06 08:33] LABS: ALBUMIN 2.5 gm/dl (3.1-4.5); ALKALINE PHOSPHATASE 136 U/L (45-117); BUN 12 mg/dl (7-24); CHLORIDE 88 mmol/L (98-107); POTASSIUM 3.8 mmol/L (3.5-5.1); SGOT/AST 29 IU/L (3-35); SGPT/ALT 27 U/L (12-78); SODIUM 125 mmol/L (136-145); TOTAL PROTEIN 5.5 gm/dL (6.4-8.2)
[2017-03-06 08:39] LABS: OVALOCYTES FEW; PLATELET SUFFICIENCY LOW (NORMAL); TOTAL CELLS COUNTED 50 #CELLS
[2017-03-06 09:57] LABS: ACT PARTIAL THROMBO TIME 38.9 SECONDS (20.8-31.5); INTERNATIONAL NORM RATIO 1.3 (2.0-3.5)
[2017-03-06 10:18] LABS: TROPONIN I 0.015 ng/ml (<0.045)
[2017-03-06 10:26] LABS: BILIRUBIN 1+ (NEGATIVE); BLOOD 2+ (NEGATIVE); CLARITY SL CLOUDY (CLEAR); COLOR YELLOW (YELLOW); GLUCOSE TRACE (NEGATIVE); KETONE NEGATIVE (NEGATIVE); LEUKO ESTERASE TRACE (NEGATIVE); NITRITE POSITIVE (NEGATIVE); UROBILINOGEN >= 8.0 E.U./dl (0.2-1.0)
[2017-03-06 11:07] LABS: BACTERIA 3+; EPITHELIAL CELLS 25-35; RBC 21-30 rbc/hpf (0-2); WBC 31-40 wbc/hpf (0-5)
[2017-03-07] VITALS (7 sets, daily range): BP systolic 78–127; BP diastolic 55–67
[2017-03-07 06:47] LABS: HEMOGLOBIN 8.9 g/dl (14.0-18.0); MEAN CELL VOLUME 92.9 fl (80.0-94.0); MEAN CORPUSCULAR HGB 31.8 pg (27.0-31.0); MEAN CORPUSCULAR HGB CONC 34.2 g/dl (33.0-37.0); MEAN PLATELET VOLUME 12.8 fl (9.6-12.3); RED CELL DISTRI WIDTH 17.3 % (0-14.5)
[2017-03-07 06:54] LABS: PLATELET COUNT AUTOMATED 38 10*3/uL (130-400)
[2017-03-07 07:21] LABS: BURR CELLS MODERATE; PLATELET SUFFICIENCY LOW (NORMAL); POLYCHROMASIA SLIGHT; TOTAL CELLS COUNTED 25 #CELLS
[2017-03-07 07:23] LABS: WHITE BLOOD COUNT 0.5 10*3/uL (4.8-10.8)
[2017-03-07 07:32] LABS: CHLORIDE 95 mmol/L (98-107); POTASSIUM 3.7 mmol/L (3.5-5.1); SODIUM 126 mmol/L (136-145)
[2017-03-07 07:44] LABS: ALKALINE PHOSPHATASE 115 U/L (45-117); BUN 18 mg/dl (7-24); CHOLESTEROL 52 mg/dL (<200); CREATININE 1.02 mg/dL (0.70-1.30); HDL CHOLESTEROL 12 mg/dl (40-60); LDL CHOLESTEROL 13 mg/dL (9-159); LIPASE 99 U/L (73-393); PHOSPHOROUS 2.8 mg/dL (2.5-4.9); SGOT/AST 37 IU/L (3-35); SGPT/ALT 26 U/L (12-78); THYROID STIM HORMONE (HS) 0.666 uIU/ml (0.358-4.75); TOTAL PROTEIN 4.7 gm/dL (6.4-8.2); TRIGLYCERIDES 136 mg/dl (<150); VLDL CHOLESTEROL 27 mg/dL (6-40)
[2017-03-07] MEDS ORDERED: DIGOXIN IV (08:18)
[2017-03-07] MEDS ORDERED: LANOXIN IV (08:20)
[2017-03-07 13:04] LABS: BILIRUBIN 1+ (NEGATIVE); BLOOD 2+ (NEGATIVE); CLARITY CLOUDY (CLEAR); COLOR YELLOW (YELLOW); GLUCOSE NEGATIVE (NEGATIVE); KETONE NEGATIVE (NEGATIVE); LEUKO ESTERASE NEGATIVE (NEGATIVE); NITRITE POSITIVE (NEGATIVE); SPECIFIC GRAVITY 1.015 (1.005-1.030); UROBILINOGEN >= 8.0 E.U./dl (0.2-1.0)
[2017-03-07 13:26] LABS: BACTERIA 2+
[2017-03-07 15:29] LABS: ABG HCO3 17.2 mmol/l (22-26); ABG O2 SATURATION 97.7 % (95-97); ARTERIAL BLOOD GAS PCO2 27.6 mmHg (35-45); ARTERIAL BLOOD GAS PH 7.414 (7.35-7.45); ARTERIAL BLOOD GAS PO2 93.5 mmHg (80-90)
[2017-03-07] MEDS ORDERED: OXYBUTYNIN5 MG PO (15:47)
[2017-03-07] MEDS ORDERED: NORVASC5 MG PO (15:56)
[2017-03-08] VITALS (10 sets, daily range): BP systolic 96–128; BP diastolic 58–68
[2017-03-08 06:00] LABS: HEMATOCRIT 26.1 % (42.0-52.0); HEMOGLOBIN 8.9 g/dl (14.0-18.0); MEAN CELL VOLUME 92.6 fl (80.0-94.0); MEAN CORPUSCULAR HGB 31.6 pg (27.0-31.0); MEAN CORPUSCULAR HGB CONC 34.1 g/dl (33.0-37.0); MEAN PLATELET VOLUME 14.1 fl (9.6-12.3); PLATELET COUNT AUTOMATED 42 10*3/uL (130-400); RED BLOOD COUNT 2.82 10*6/uL (4.50-5.90); RED CELL DISTRI WIDTH 17.2 % (0-14.5)
[2017-03-08 06:15] LABS: CHLORIDE 98 mmol/L (98-107); POTASSIUM 3.2 mmol/L (3.5-5.1); SODIUM 131 mmol/L (136-145)
[2017-03-08 06:46] LABS: ALBUMIN 1.8 gm/dl (3.1-4.5); ALKALINE PHOSPHATASE 99 U/L (45-117); BUN 12 mg/dl (7-24); CREATININE 0.67 mg/dL (0.70-1.30); DIGOXIN 0.68 ng/ml (0.8-2.0); LIPASE 121 U/L (73-393); SGOT/AST 33 IU/L (3-35); SGPT/ALT 24 U/L (12-78); TOTAL PROTEIN 4.8 gm/dL (6.4-8.2)
[2017-03-08 07:06] LABS: ACANTHOCYTES FEW; BURR CELLS MODERATE; PLATELET SUFFICIENCY LOW (NORMAL); POLYCHROMASIA SLIGHT; TOTAL CELLS COUNTED 50 #CELLS
[2017-03-08 07:07] LABS: WHITE BLOOD COUNT 0.3 10*3/uL (4.8-10.8)
[2017-03-08 10:49] LABS: ABG BASE EXCESS -2.4 mmol/L (-2.0-2.0); ABG HCO3 20.5 mmol/l (22-26); ABG O2 SATURATION 89.3 % (95-97); ARTERIAL BLOOD GAS PCO2 30.7 mmHg (35-45); ARTERIAL BLOOD GAS PH 7.442 (7.35-7.45); ARTERIAL BLOOD GAS PO2 55.9 mmHg (80-90)
[2017-03-09] VITALS (7 sets, daily range): BP systolic 100–118; BP diastolic 56–76
[2017-03-09 06:03] LABS: ALBUMIN 1.7 gm/dl (3.1-4.5); ALKALINE PHOSPHATASE 93 U/L (45-117); BUN 14 mg/dl (7-24); CHLORIDE 99 mmol/L (98-107); CREATININE 0.71 mg/dL (0.70-1.30); PHOSPHOROUS 1.6 mg/dL (2.5-4.9); POTASSIUM 3.3 mmol/L (3.5-5.1); SGOT/AST 30 IU/L (3-35); SGPT/ALT 22 U/L (12-78); SODIUM 131 mmol/L (136-145); TOTAL PROTEIN 4.9 gm/dL (6.4-8.2)
[2017-03-09 06:05] LABS: HEMOGLOBIN 9.1 g/dl (14.0-18.0); MEAN CELL VOLUME 92.2 fl (80.0-94.0); MEAN CORPUSCULAR HGB 31.1 pg (27.0-31.0); MEAN CORPUSCULAR HGB CONC 33.7 g/dl (33.0-37.0); PLATELET COUNT AUTOMATED 37 10*3/uL (130-400); RED BLOOD COUNT 2.93 10*6/uL (4.50-5.90); RED CELL DISTRI WIDTH 17.1 % (0-14.5)
[2017-03-09 06:26] LABS: DIGOXIN 1.62 ng/ml (0.8-2.0)
[2017-03-09 06:34] LABS: BURR CELLS MODERATE; PLATELET SUFFICIENCY LOW (NORMAL); TOTAL CELLS COUNTED 50 #CELLS
[2017-03-09 06:35] LABS: WHITE BLOOD COUNT 0.5 10*3/uL (4.8-10.8)
[2017-03-09 07:50] LABS: ABG BASE EXCESS -2.1 mmol/L (-2.0-2.0); ABG HCO3 21.4 mmol/l (22-26); ABG O2 SATURATION 84.8 % (95-97); ARTERIAL BLOOD GAS PCO2 33.8 mmHg (35-45); ARTERIAL BLOOD GAS PH 7.418 (7.35-7.45); ARTERIAL BLOOD GAS PO2 52.3 mmHg (80-90)
[2017-03-09 10:12] LABS: ABG BASE EXCESS -2.2 mmol/L (-2.0-2.0); ABG O2 SATURATION 99.5 % (95-97); ARTERIAL BLOOD GAS PCO2 26.1 mmHg (35-45); ARTERIAL BLOOD GAS PH 7.494 (7.35-7.45)
[2017-03-10] VITALS: BP 124/62
[2017-03-10 04:00] VITALS: BP 103/63
[2017-03-10 05:58] LABS: ALBUMIN 1.6 gm/dl (3.1-4.5); ALKALINE PHOSPHATASE 86 U/L (45-117); BUN 23 mg/dl (7-24); CHLORIDE 100 mmol/L (98-107); CREATININE 1.19 mg/dL (0.70-1.30); PHOSPHOROUS 2.9 mg/dL (2.5-4.9); POTASSIUM 3.6 mmol/L (3.5-5.1); SGOT/AST 31 IU/L (3-35); SGPT/ALT 24 U/L (12-78); SODIUM 134 mmol/L (136-145); TOTAL PROTEIN 4.7 gm/dL (6.4-8.2)
[2017-03-10 06:16] LABS: VANCOMYCIN TROUGH 24.5 ug/mL (10-20)
[2017-03-10 06:27] LABS: HEMATOCRIT 26.1 % (42.0-52.0); HEMOGLOBIN 8.9 g/dl (14.0-18.0); MEAN CELL VOLUME 93.9 fl (80.0-94.0); MEAN CORPUSCULAR HGB CONC 34.1 g/dl (33.0-37.0); PLATELET COUNT AUTOMATED 40 10*3/uL (130-400); RED BLOOD COUNT 2.78 10*6/uL (4.50-5.90); RED CELL DISTRI WIDTH 17.3 % (0-14.5)
[2017-03-10 07:47] LABS: TOTAL CELLS COUNTED 100 #CELLS
[2017-03-10 07:48] LABS: BURR CELLS MANY; PLATELET SUFFICIENCY LOW (NORMAL)
[2017-03-10 07:49] LABS: WHITE BLOOD COUNT 1.8 10*3/uL (4.8-10.8)
[2017-03-10 08:00] VITALS: BP 111/69
[2017-03-10 08:46] LABS: ABG HCO3 20.6 mmol/l (22-26); ARTERIAL BLOOD GAS PCO2 33.4 mmHg (35-45); ARTERIAL BLOOD GAS PH 7.406 (7.35-7.45)
[2017-03-10 12:00] VITALS: BP 125/82
[2017-03-10 16:00] VITALS: BP 93/54
[2017-03-10 20:00] VITALS: BP 115/58
[2017-03-11] VITALS (10 sets, daily range): BP systolic 100–124; BP diastolic 48–75
[2017-03-11 06:15] LABS: HEMATOCRIT 27.5 % (42.0-52.0); HEMOGLOBIN 9.2 g/dl (14.0-18.0); MEAN CELL VOLUME 94.5 fl (80.0-94.0); MEAN CORPUSCULAR HGB 31.6 pg (27.0-31.0); MEAN CORPUSCULAR HGB CONC 33.5 g/dl (33.0-37.0); PLATELET COUNT AUTOMATED 51 10*3/uL (130-400); RED BLOOD COUNT 2.91 10*6/uL (4.50-5.90); RED CELL DISTRI WIDTH 17.5 % (0-14.5); WHITE BLOOD COUNT 4.8 10*3/uL (4.8-10.8)
[2017-03-11 06:33] LABS: ALBUMIN 1.5 gm/dl (3.1-4.5); CREATININE 1.45 mg/dL (0.70-1.30); POTASSIUM 4.1 mmol/L (3.5-5.1)
[2017-03-11 06:46] LABS: DIGOXIN 2.04 ng/ml (0.8-2.0); TOTAL PROTEIN 4.9 gm/dL (6.4-8.2)
[2017-03-11 07:20] LABS: BURR CELLS MODERATE; PLATELET SUFFICIENCY LOW (NORMAL); TOTAL CELLS COUNTED 100 #CELLS
[2017-03-11 07:21] LABS: ACANTHOCYTES FEW; OVALOCYTES FEW
[2017-03-11 07:22] LABS: VACUOLATION OF NEUTROPHILS SLIGHT
[2017-03-12] VITALS (16 sets, daily range): BP systolic 118–136; BP diastolic 53–70
[2017-03-12 09:48] LABS: ALBUMIN 1.3 gm/dl (3.1-4.5); CREATININE 1.62 mg/dL (0.70-1.30); POTASSIUM 3.5 mmol/L (3.5-5.1); TOTAL PROTEIN 4.4 gm/dL (6.4-8.2)
[2017-03-12 09:49] LABS: PHOSPHOROUS 2.8 mg/dL (2.5-4.9)
[2017-03-12 10:03] LABS: HEMATOCRIT 23.1 % (42.0-52.0); HEMOGLOBIN 7.9 g/dl (14.0-18.0); MEAN CELL VOLUME 95.9 fl (80.0-94.0); MEAN CORPUSCULAR HGB 32.8 pg (27.0-31.0); MEAN CORPUSCULAR HGB CONC 34.2 g/dl (33.0-37.0); MEAN PLATELET VOLUME 14.3 fl (9.6-12.3); NUCLEATED RED BLOOD CELL 0.4 % (0.0-0.0); PLATELET COUNT AUTOMATED 52 10*3/uL (130-400); RED BLOOD COUNT 2.41 10*6/uL (4.50-5.90); RED CELL DISTRI WIDTH 17.5 % (0-14.5); WHITE BLOOD COUNT 5.2 10*3/uL (4.8-10.8)
[2017-03-12 10:27] LABS: TOTAL CELLS COUNTED 100 #CELLS
[2017-03-12 10:28] LABS: BURR CELLS MODERATE; PLATELET SUFFICIENCY LOW (NORMAL); POLYCHROMASIA SLIGHT
[2017-03-12 21:03] LABS: HEMOGLOBIN 9.2 g/dl (14.0-18.0)
[2017-03-13] VITALS (11 sets, daily range): BP systolic 113–148; BP diastolic 49–74
[2017-03-13 05:42] LABS: HEMOGLOBIN 9.7 g/dl (14.0-18.0); MEAN CORPUSCULAR HGB 32.1 pg (27.0-31.0); MEAN CORPUSCULAR HGB CONC 34.6 g/dl (33.0-37.0); MEAN PLATELET VOLUME 13.8 fl (9.6-12.3); NUCLEATED RED BLOOD CELL 0.1 10*3/uL (0.0-0.0); NUCLEATED RED BLOOD CELL 1.4 % (0.0-0.0); RED BLOOD COUNT 3.02 10*6/uL (4.50-5.90); RED CELL DISTRI WIDTH 18.4 % (0-14.5); WHITE BLOOD COUNT 9.6 10*3/uL (4.8-10.8)
[2017-03-13 05:46] LABS: ALBUMIN 1.3 gm/dl (3.1-4.5); CREATININE 1.81 mg/dL (0.70-1.30); PHOSPHOROUS 3.4 mg/dL (2.5-4.9); POTASSIUM 3.5 mmol/L (3.5-5.1); TOTAL PROTEIN 4.7 gm/dL (6.4-8.2)
[2017-03-13 05:48] LABS: MEAN CELL VOLUME 92.7 fl (80.0-94.0); PLATELET COUNT AUTOMATED 72 10*3/uL (130-400)
[2017-03-13 06:04] LABS: DIGOXIN 1.43 ng/ml (0.8-2.0)
[2017-03-13 06:54] LABS: TOTAL CELLS COUNTED 100 #CELLS; TOXIC GRANULATION MODERATE
[2017-03-13 06:55] LABS: BURR CELLS MODERATE; PLATELET SUFFICIENCY LOW (NORMAL); SCHISTOCYTES FEW
[2017-03-14 06:13] LABS: HEMATOCRIT 26.1 % (42.0-52.0); HEMOGLOBIN 8.7 g/dl (14.0-18.0); MEAN CELL VOLUME 92.9 fl (80.0-94.0); MEAN CORPUSCULAR HGB CONC 33.3 g/dl (33.0-37.0); MEAN PLATELET VOLUME 13.5 fl (9.6-12.3); NUCLEATED RED BLOOD CELL 0.1 10*3/uL (0.0-0.0); NUCLEATED RED BLOOD CELL 0.7 % (0.0-0.0); PLATELET COUNT AUTOMATED 59 10*3/uL (130-400); RED BLOOD COUNT 2.81 10*6/uL (4.50-5.90); RED CELL DISTRI WIDTH 18.6 % (0-14.5); WHITE BLOOD COUNT 12.8 10*3/uL (4.8-10.8)
[2017-03-14 06:14] LABS: CREATININE 1.98 mg/dL (0.70-1.30); POTASSIUM 3.1 mmol/L (3.5-5.1)
[2017-03-14 06:47] LABS: INTERNATIONAL NORM RATIO 1.1 (2.0-3.5)
[2017-03-14 06:57] LABS: BURR CELLS MODERATE; TOTAL CELLS COUNTED 100 #CELLS
[2017-03-14 06:58] LABS: PLATELET SUFFICIENCY LOW (NORMAL); SCHISTOCYTES FEW; TOXIC GRANULATION MODERATE
[2017-03-14 08:00] VITALS: BP 120/52
[2017-03-14 12:00] VITALS: BP 124/52
[2017-03-14 16:00] VITALS: BP 116/46
[2017-03-14 20:00] VITALS: BP 124/53
[2017-03-15] VITALS: BP 120/56
[2017-03-15 04:00] VITALS: BP 127/59
[2017-03-15 06:19] LABS: HEMOGLOBIN 7.9 g/dl (14.0-18.0)
[2017-03-15 08:00] VITALS: BP 130/62
[2017-03-15 08:12] LABS: HEMATOCRIT 24.4 % (42.0-52.0); MEAN CORPUSCULAR HGB 30.5 pg (27.0-31.0); MEAN CORPUSCULAR HGB CONC 32.4 g/dl (33.0-37.0); MEAN PLATELET VOLUME 13.7 fl (9.6-12.3); NUCLEATED RED BLOOD CELL 0.3 % (0.0-0.0); PLATELET COUNT AUTOMATED 50 10*3/uL (130-400); RED BLOOD COUNT 2.59 10*6/uL (4.50-5.90); RED CELL DISTRI WIDTH 18.7 % (0-14.5); WHITE BLOOD COUNT 9.6 10*3/uL (4.8-10.8)
[2017-03-15 08:15] LABS: MEAN CELL VOLUME 94.2 fl (80.0-94.0)
[2017-03-15 08:20] LABS: CREATININE 2.02 mg/dL (0.70-1.30); PHOSPHOROUS 4.9 mg/dL (2.5-4.9); POTASSIUM 3.1 mmol/L (3.5-5.1)
[2017-03-15 08:28] LABS: BASOPHILS 1 % (0-1); TOTAL CELLS COUNTED 100 #CELLS
[2017-03-15 08:29] LABS: OVALOCYTES FEW; PLATELET SUFFICIENCY LOW (NORMAL); POLYCHROMASIA SLIGHT
[2017-03-15 12:00] VITALS: BP 131/64
[2017-03-15 16:00] VITALS: BP 131/64
[2017-03-15 20:00] VITALS: BP 135/66
[2017-03-16] VITALS: BP 110/52
[2017-03-16 04:00] VITALS: BP 127/60
[2017-03-16 06:04] LABS: NUCLEATED RED BLOOD CELL 0.3 % (0.0-0.0)
[2017-03-16 06:07] LABS: ALBUMIN 1.8 gm/dl (3.1-4.5); HEMATOCRIT 25.4 % (42.0-52.0); HEMOGLOBIN 8.4 g/dl (14.0-18.0); MEAN CELL VOLUME 95.1 fl (80.0-94.0); MEAN CORPUSCULAR HGB 31.5 pg (27.0-31.0); MEAN CORPUSCULAR HGB CONC 33.1 g/dl (33.0-37.0); MEAN PLATELET VOLUME 14.1 fl (9.6-12.3); PLATELET COUNT AUTOMATED 51 10*3/uL (130-400); POTASSIUM 3.5 mmol/L (3.5-5.1); RED BLOOD COUNT 2.67 10*6/uL (4.50-5.90); RED CELL DISTRI WIDTH 19.1 % (0-14.5); WHITE BLOOD COUNT 6.8 10*3/uL (4.8-10.8)
[2017-03-16 06:10] LABS: CREATININE 1.94 mg/dL (0.70-1.30); PHOSPHOROUS 4.9 mg/dL (2.5-4.9); TOTAL PROTEIN 5.5 gm/dL (6.4-8.2)
[2017-03-16 06:47] LABS: BURR CELLS MODERATE; PLATELET SUFFICIENCY LOW (NORMAL); ROULEAUX MODERATE; SCHISTOCYTES FEW; TOTAL CELLS COUNTED 100 #CELLS
[2017-03-16 08:00] VITALS: BP 146/68
[2017-03-16 12:00] VITALS: BP 146/71
== END 2017-03-16 15:54 | DRG 939 ==
LOC: ED 07:44 → ICCU 08:14 → EDHOLD 08:14 → 4E 08:26 → ICCU 03-07 12:31
PROVIDERS: Emergency Medicine; Family Medicine; Internal Medicine; Internal Medicine Cardiovascular Disease; Internal Medicine Critical Care Medicine; Internal Medicine Hematology & Oncology; Internal Medicine Hospice and Palliative Medicine; Student in an Organized Health Care Education/Training Program
PROC: 0JBQ0ZZ Excision of Right Foot Subcutaneous Tissue and Fascia, Open Approach (ICD-10-PCS; principal; 2017-03-07)
PROC: 5A09357 Assistance with Respiratory Ventilation, Less than 24 Consecutive Hours, Continuous Positive Airway Pressure (ICD-10-PCS; 2017-03-09)
PROC: 5A09357 Assistance with Respiratory Ventilation, Less than 24 Consecutive Hours, Continuous Positive Airway Pressure (ICD-10-PCS; 2017-03-10)
PROC: 02HV33Z Insertion of Infusion Device into Superior Vena Cava, Percutaneous Approach (ICD-10-PCS; 2017-03-11)
PROC: 5A09357 Assistance with Respiratory Ventilation, Less than 24 Consecutive Hours, Continuous Positive Airway Pressure (ICD-10-PCS; 2017-03-11)
PROC: 0JPV0WZ Removal of Totally Implantable Vascular Access Device from Upper Extremity Subcutaneous Tissue and Fascia, Open Approach (ICD-10-PCS; 2017-03-11)
PROC: 5A09357 Assistance with Respiratory Ventilation, Less than 24 Consecutive Hours, Continuous Positive Airway Pressure (ICD-10-PCS; 2017-03-12)
PROC: 30233N1 Transfusion of Nonautologous Red Blood Cells into Peripheral Vein, Percutaneous Approach (ICD-10-PCS; 2017-03-12)
PROC: 5A09357 Assistance with Respiratory Ventilation, Less than 24 Consecutive Hours, Continuous Positive Airway Pressure (ICD-10-PCS; 2017-03-14)
PROC: 5A09357 Assistance with Respiratory Ventilation, Less than 24 Consecutive Hours, Continuous Positive Airway Pressure (ICD-10-PCS; 2017-03-16)
DX: Z92.21 Personal history of antineoplastic chemotherapy (principal); J96.01 Acute respiratory failure with hypoxia; N17.0 Acute kidney failure with tubular necrosis; A41.01 Sepsis due to Methicillin susceptible Staphylococcus aureus; E43 Unspecified severe protein-calorie malnutrition; L89.152 Pressure ulcer of sacral region, stage 2; D61.810 Antineoplastic chemotherapy induced pancytopenia; G93.41 Metabolic encephalopathy; R65.20 Severe sepsis without septic shock; T80.211A Bloodstream infection due to central venous catheter, initial encounter; C79.51 Secondary malignant neoplasm of bone; Z68.41 Body mass index [BMI] 40.0-44.9, adult; N39.0 Urinary tract infection, site not specified; E87.1 Hypo-osmolality and hyponatremia; L03.115 Cellulitis of right lower limb; D68.9 Coagulation defect, unspecified; L97.518 Non-pressure chronic ulcer of other part of right foot with other specified severity; I13.0 Hypertensive heart and chronic kidney disease with heart failure and stage 1 through stage 4 chronic kidney disease, or unspecified chronic kidney disease; J98.11 Atelectasis; I50.30 Unspecified diastolic (congestive) heart failure; Z66 Do not resuscitate; Z51.5 Encounter for palliative care; E67.8 Other specified hyperalimentation; E87.8 Other disorders of electrolyte and fluid balance, not elsewhere classified; E86.0 Dehydration; K52.9 Noninfective gastroenteritis and colitis, unspecified; S91.301A Unspecified open wound, right foot, initial encounter; R31.0 Gross hematuria; C61 Malignant neoplasm of prostate; R26.2 Difficulty in walking, not elsewhere classified; I48.0 Paroxysmal atrial fibrillation; E87.6 Hypokalemia; E80.6 Other disorders of bilirubin metabolism; R70.0 Elevated erythrocyte sedimentation rate; E83.39 Other disorders of phosphorus metabolism; E83.51 Hypocalcemia; E11.621 Type 2 diabetes mellitus with foot ulcer; E78.2 Mixed hyperlipidemia; Z96.653 Presence of artificial knee joint, bilateral; I25.10 Atherosclerotic heart disease of native coronary artery without angina pectoris; X58.XXXA Exposure to other specified factors, initial encounter; E11.65 Type 2 diabetes mellitus with hyperglycemia; T45.515A Adverse effect of anticoagulants, initial encounter; E11.22 Type 2 diabetes mellitus with diabetic chronic kidney disease; N18.9 Chronic kidney disease, unspecified; I49.3 Ventricular premature depolarization; M1A.9XX0 Chronic gout, unspecified, without tophus (tophi); E66.01 Morbid (severe) obesity due to excess calories; I87.8 Other specified disorders of veins; K21.9 Gastro-esophageal reflux disease without esophagitis; Z88.8 Allergy status to other drugs, medicaments and biological substances; Z79.899 Other long term (current) drug therapy; Z90.49 Acquired absence of other specified parts of digestive tract; Z83.3 Family history of diabetes mellitus; Z82.49 Family history of ischemic heart disease and other diseases of the circulatory system; Y93.89 Activity, other specified; Y92.89 Other specified places as the place of occurrence of the external cause; Y99.8 Other external cause status

== ENCOUNTER 2018-01-28 12:08 | Inpatient (IN) | payer MEDICARE ==
[~2018-01-28] VITALS: Ht 172.7 cm; Wt 98.7 kg
[2018-01-28] VITALS (27 sets, daily range): BP systolic 75–115; BP diastolic 37–59
--- NOTE | ~2018-01-28 | PR ---
[place], [place] PROGRESS NOTE NAME: ELIESER KAHN [facility] #: [id number] UNIT #: [id number] ROOM: 427 DOCTOR: CAMILO HARRISON DPM BIRTHDATE: [birth year] DOS: SUBJECTIVE: The patient was seen for followup of ulceration to posterior lower right leg. OBJECTIVE: Ulceration is full thickness. There are no signs of purulent drainage or foul odor, no signs of fluctuance or infection. ASSESSMENT: Ulceration, posterior right leg. PLAN: Evaluation and management. Continue dressings as ordered and offloading and the patient will be seen for followup. The patient is apparently going back to [facility] today. We will follow the patient at the alf. CAMILO HARRISON DPM CM:PNKARINE [id number] CAMILO HARRISON DPM 02/01/18 1236 interface
--- NOTE | ~2018-01-28 | CON ---
[place], [place] REPORT OF CONSULTATION NAME: ELIESER KAHN [facility] #: [id number] UNIT #: [id number] ROOM: [facility] DOCTOR: CAMILO HARRISON DPM BIRTHDATE: [birth year] DOS: 01/29/2018 SUBJECTIVE: The patient presents for a chief complaint of an ulceration to the posterior right leg. The patient is a 67-year-old male with current prostate and bladder cancer. PAST MEDICAL HISTORY: AFib, anorexia, bone metastasis, CAD, decubitus ulcer of coccyx, diabetes, essential hypertension, GERD, gout, ischemic cardiomyopathy, morbid obesity, normocytic anemia, prostate cancer, severe protein-calorie malnutrition, transaminitis, unable to ambulate, vitamin D deficiency. PAST SURGICAL HISTORY: Colon resection, total bilateral knee replacement, Port-A-Cath in place. SOCIAL HISTORY: Does not drink alcohol, does not use illicit drugs. Former smoker, quit 10 years ago. FAMILY HISTORY: Father , unknown cause. Mother , cause unknown. ALLERGIES: ACETAMINOPHEN, HYDROCODONE. PHYSICAL EXAMINATION: LOWER EXTREMITY EXAMINATION: Pedal pulses palpable, but diminished. There is an ulceration to the posterior right calf. Lower leg that is showing no signs of purulent drainage or foul odor has partial thickness. No signs of fluctuance or erythema. Tenderness to the area noted. No signs of infection. ASSESSMENT: Ulceration, posterior right leg. PLAN: Evaluation and management. Ordered Bactroban and Adaptic with gauze dressing with Kerlix to be applied daily. We will check the patient again tomorrow for followup. CAMILO HARRISON DPM CM:CONSTR:REPORT OF CONSULTATION 1103 01/30/18 0401 interface
--- NOTE | ~2018-01-28 | CON ---
[place], [place] REPORT OF CONSULTATION [facility] [id number] UNIT #: [id number] ROOM: 427 DOCTOR: RADHA HURTADO MD BIRTHDATE: [birth year] DOS: 01/31/2018 HISTORY OF PRESENT ILLNESS: This is a 67-year-old -[place] gentleman who has coronary artery disease and ischemic cardiomyopathy. He had coronary artery stents deployed and was found to have severe ischemic cardiomyopathy and about a month ago he was given a LifeVest by [facility] personal consultant. He was in this hospital about a month ago. He has a history of atrial fibrillation, diabetes mellitus and prostate cancer. When he was in this hospital the last time, he seemed to be well compensated cardiac alejandre. He has had a knee surgery and colon resection. He was admitted through the Emergency Department because of low blood pressure. He has fatigue, general weakness, poor appetite, but no chest pain. He had no cough, fever or chills, and no dark stools. He had no PND, orthopnea or any palpitations. HOME MEDICATIONS: Numerous. Cardiac medications include aspirin 81 mg daily, atorvastatin 40 mg daily, clopidogrel 75 mg daily, furosemide 40 mg daily, lisinopril 2.5 mg daily, metoprolol succinate 25 mg tablet half daily, potassium chloride 20 mEq daily and warfarin 5 mg daily. PHYSICAL EXAMINATION: GENERAL: This reveals a patient who is lying in bed. He is comfortable. He is not tachypneic. He has a central line. His complexion is a little pale. VITAL SIGNS: Pulse is 84 and regular, blood pressure is 112/64. NECK: JVP is normal. AJR is negative. There is no bruit in the neck. CARDIOVASCULAR: Auscultation did not reveal any obvious murmurs. He had no edema at all in the lower extremities. RESPIRATORY: Breath sounds were somewhat diminished, but hardly any adventitious sounds were present. DIAGNOSTIC DATA: Chest x-ray demonstrated no pulmonary edema or infiltrates. IMPRESSION: 1. This patient has coronary artery disease, which is asymptomatic. 2. He has severe ischemic cardiomyopathy, which is well compensated. 3. Low blood pressure is probably because of poor cardiac contractility. If he is asymptomatic with a systolic blood pressure of 80-85 mmHg, he should be just fine as long as he can think straight and is making urine. I thank you on behalf of Dr. Galan for this consult. [place], [place] REPORT OF CONSULTATION NAME: ELIESER KAHN UNIT #: [id number] ROOM: 427 DOCTOR: RADHA HURTADO MD BIRTHDATE: [birth year] RADHA HURTADO MD CM:CONSTR:REPORT OF CONSULTATION 1752 01/31/18 3985 interface
--- NOTE | ~2018-01-28 | PR ---
[place], [place] PROGRESS NOTE NAME: ELIESER KAHN [facility] #: [id number] UNIT #: [id number] ROOM: 427 DOCTOR: MIKE JAIME MD BIRTHDATE: [birth year] DOS: 02/01/2018 SUBJECTIVE: The patient was seen by Dr. Giron on my behalf yesterday, was off this week and Dr. Giron was covering me. The patient admitted with hypotension, dehydration and renal failure. The patient with a history of ischemic cardiomyopathy. The patient has a LifeVest and being followed by [facility], has done quite well from the cardiac point of view. He denies any chest discomfort. Hemodynamically, his pressure is much better. REVIEW OF SYSTEMS: Denies any chest discomfort. Does have shortness of breath. No nausea, no vomiting. OBJECTIVE: VITAL SIGNS: Blood pressure today is 110/70. NECK: Supple, no JVD. LUNGS: Clear. HEART: Sounds are regular. ABDOMEN: Soft and nontender. IMPRESSION AND PLAN: The patient is on Lasix 20 mg, pantoprazole, cholecalciferol, aspirin, gabapentin, atorvastatin, and Plavix. The patient was on lisinopril 2.5, metoprolol 12.5 b.i.d. and Coumadin. The patient with a known history of coronary artery disease, severe ischemic cardiomyopathy. RECOMMENDATIONS: Continue the present care. Because the blood pressure is back up normal, start him back on his small dose of beta blockers and CHRISTEN inhibitors. Increase activity and we will follow up. MIKE JAIME MD CM:PNTRANS [id number] MIKE JAIME MD 02/01/18 1219 interface
--- NOTE | ~2018-01-28 | PR ---
[place], [place] PROGRESS NOTE [id number] #: [id number] ROOM: 427 DOCTOR: MIGUEL VELASQUEZ MD BIRTHDATE: [birth year] DOS: 01/30/2018 NEPHROLOGY FOLLOWUP NOTE SUBJECTIVE: The patient was seen and examined. He was out of the ICU. He feels well. No shortness of breath, fevers or chills. He is in no acute distress. PHYSICAL EXAMINATION: VITAL SIGNS: Temperature 97.4, pulse 80, respiration rate 16, blood pressure 121/52. HEENT: Shows no JVD. LUNGS: Diminished breath sounds with no wheeze. HEART: S1, S2. No rub. ABDOMEN: Soft, nontender. EXTREMITIES: Have no edema. SKIN: Showed no rash. LABORATORY DATA: Blood cultures from the 7th showed no growth to date. Hemoglobin 9.0, white count of 5.3, platelets 197. BUN 31, creatinine 0.8, sodium 132, potassium 4.6, CO2 of 26, calcium 8.9. Renal ultrasound showed no hydronephrosis. ASSESSMENT AND PLAN: 1. Acute kidney injury. This seems to be related to prerenal factors. His renal function is improving and is near baseline. His acute kidney injury, essentially has resolved. 2. Mild hyponatremia. Continue to follow labs. If needed, can place on an oral fluid restriction; however, appears mild and would expect this to normalize as his kidney function continues to normalize. 3. Anemia. Transfuse as needed. 4. History of gout. Continue meds. MIGUEL VELASQUEZ MD CM:PNTRANS 1811 MIGUEL VELASQUEZ MD 01/30/18 2100 interface
[~2018-01-28 12:08] MED LIST changes: +ALDACTONE25 M1 PO; +ALLOPURINOL300 MG PO; +AMLODIPINE BESYL5 MG PO; +ASPIRIN ADULT L81 M1 PO; +ATORVASTATIN CA40 M1 PO; +CALCIUM + VITA1 EAC2 PO; +CIPRO250 MG PO; +COUMADIN5 M2 PO; +Clopidogrel75 MG PO; +DEXAMETHASONE1 MG PO; +DEXAMETHASONE2 MG PO; +DEXAMETHASONE6 MG PO; +DIGOXIN IV; +ELIQUIS5 M1 PO; +JANUVIA100 MG PO; +KLOR-CON M2020 ME1 PO; +LANOXIN IV; +LASIX40 MG PO; +LISINOPRIL2.5 MG PO; +LUPRON DEPOT3.75 M1 IM; +MAGOX 400400 MG PO; +MEGACE40 MG PO; +METOPROLOL TART50 M1 PO; +NEURONTIN100 MG PO; +NORVASC5 MG PO; +OMEPRAZOLE D/R20 MG PO; +OXYBUTYNIN CHLOR5 MG PO; +OXYBUTYNIN5 MG PO; +PREDNISONE5 MG PO; +PROCHLORPERAZIN10 M1 PO; +PROPAFENONE HC150 MG PO; +Synthroid,Levo50 MCG PO; +TAMSULOSIN HCL0.4 MG PO; +TESSALON PERLE100 MG PO; +TOPROL XL25 MG PO; +VIRT-PHOS 250250 MG PO; +VITAMIN D33000 UNIT PO; +ZOMETA4 MG/5 ML IV
[2018-01-28 12:45] LABS: BASO % 0.1 % (0.0-1.0); EOS % 0.3 % (1.0-4.0); HEMATOCRIT 22.5 % (42.0-52.0); HEMOGLOBIN 7.3 g/dl (14.0-18.0); LYMPH # 0.5 10*3/uL (1.3-4.4); LYMPH % 6.9 % (27.0-41.0); MEAN CELL VOLUME 96.2 fl (80.0-94.0); MEAN CORPUSCULAR HGB 31.2 pg (27.0-31.0); MEAN CORPUSCULAR HGB CONC 32.4 g/dl (33.0-37.0); MONO # 0.5 10*3/uL (0.1-1.0); MONO % 6.6 % (3.0-9.0); NEUT # 6.2 10*3/uL (2.3-7.9); NEUT % 85.1 % (47.0-73.0); PLATELET COUNT AUTOMATED 173 10*3/uL (130-400); RED BLOOD COUNT 2.34 10*6/uL (4.50-5.90); RED CELL DISTRI WIDTH 17.9 % (0-14.5); WHITE BLOOD COUNT 7.3 10*3/uL (4.8-10.8)
[2018-01-28 12:58] LABS: ACT PARTIAL THROMBO TIME 67.6 SECONDS (20.8-31.5); INTERNATIONAL NORM RATIO 2.9 (2.0-3.5)
[2018-01-28 13:03] LABS: ALBUMIN 2.3 gm/dl (3.1-4.5); CREATININE 3.25 mg/dL (0.70-1.30); POTASSIUM 5.2 mmol/L (3.5-5.1); TOTAL PROTEIN 6.8 gm/dL (6.4-8.2)
[2018-01-28 13:10] LABS: TROPONIN I 0.131 ng/ml (<0.045)
[2018-01-28 16:04] LABS: URINE CREATININE RANDOM 97.7 mg/dL
[2018-01-28 16:19] LABS: BILIRUBIN NEGATIVE (NEGATIVE); BLOOD NEGATIVE (NEGATIVE); CLARITY CLEAR (CLEAR); COLOR YELLOW (YELLOW); GLUCOSE NEGATIVE (NEGATIVE); KETONE NEGATIVE (NEGATIVE); LEUKO ESTERASE NEGATIVE (NEGATIVE); NITRITE NEGATIVE (NEGATIVE); PH 5.5 (5.0-9.0); SPECIFIC GRAVITY 1.015 (1.005-1.030); UROBILINOGEN 0.2 E.U./dl (0.2-1.0)
[2018-01-28 16:30] LABS: MUCOUS TRACE
[2018-01-28] MEDS ORDERED: MOM30 M1 PO (16:37)
[2018-01-28] MEDS ORDERED: JANUVIA100 MG PO (16:39)
[2018-01-28] MEDS ORDERED: APAP325 MG PO (16:41)
[2018-01-28] MEDS ORDERED: PROTONIX40 M1 PO (16:42)
[2018-01-28] MEDS ORDERED: COLACE100 MG PO (16:43)
[2018-01-28] MEDS ORDERED: ZOFRAN 4 MG ED2 TAB PO (16:43)
[2018-01-28] MEDS ORDERED: Carafate1 GM PO (16:44)
[2018-01-28] MEDS ORDERED: MIRTAZAPINE15 M2 PO (16:44)
[2018-01-28] MEDS ORDERED: TRAMADOL HCL50 MG PO (16:45)
[2018-01-28] MEDS ORDERED: ENULOSE10 GM/151 PO (16:45)
[2018-01-28] MEDS ORDERED: GLYCOLAX119 GM PO (16:47)
[2018-01-28] MEDS ORDERED: PROMETHAZINE25 MG R (16:47)
[2018-01-29] VITALS (97 sets, daily range): BP systolic 72–135; BP diastolic 39–66
[2018-01-29 06:16] LABS: BASO % 0.2 % (0.0-1.0); EOS % 0.6 % (1.0-4.0); HEMATOCRIT 22.9 % (42.0-52.0); HEMOGLOBIN 7.3 g/dl (14.0-18.0); LYMPH # 0.5 10*3/uL (1.3-4.4); LYMPH % 7.6 % (27.0-41.0); MEAN CELL VOLUME 94.6 fl (80.0-94.0); MEAN CORPUSCULAR HGB 30.2 pg (27.0-31.0); MEAN CORPUSCULAR HGB CONC 31.9 g/dl (33.0-37.0); MEAN PLATELET VOLUME 10.9 fl (9.6-12.3); MONO # 0.4 10*3/uL (0.1-1.0); MONO % 6.7 % (3.0-9.0); NEUT # 5.6 10*3/uL (2.3-7.9); NEUT % 83.8 % (47.0-73.0); PLATELET COUNT AUTOMATED 210 10*3/uL (130-400); RED BLOOD COUNT 2.42 10*6/uL (4.50-5.90); RED CELL DISTRI WIDTH 17.4 % (0-14.5); WHITE BLOOD COUNT 6.6 10*3/uL (4.8-10.8)
[2018-01-29 06:21] LABS: CREATININE 1.75 mg/dL (0.70-1.30); POTASSIUM 4.6 mmol/L (3.5-5.1)
[2018-01-29 06:25] LABS: INTERNATIONAL NORM RATIO 3.7 (2.0-3.5)
[2018-01-29 16:53] LABS: HEMATOCRIT 24.4 % (42.0-52.0); HEMOGLOBIN 8.1 g/dl (14.0-18.0)
[2018-01-30] VITALS (41 sets, daily range): BP systolic 89–125; BP diastolic 45–61
[2018-01-30 07:14] LABS: BASO % 0.2 % (0.0-1.0); EOS # 0.1 10*3/uL (0.0-0.4); EOS % 1.3 % (1.0-4.0); HEMATOCRIT 27.4 % (42.0-52.0); LYMPH # 0.5 10*3/uL (1.3-4.4); LYMPH % 8.7 % (27.0-41.0); MEAN CELL VOLUME 92.6 fl (80.0-94.0); MEAN CORPUSCULAR HGB 30.4 pg (27.0-31.0); MEAN CORPUSCULAR HGB CONC 32.8 g/dl (33.0-37.0); MEAN PLATELET VOLUME 10.4 fl (9.6-12.3); MONO # 0.4 10*3/uL (0.1-1.0); MONO % 6.6 % (3.0-9.0); NEUT # 4.3 10*3/uL (2.3-7.9); NEUT % 82.1 % (47.0-73.0); PLATELET COUNT AUTOMATED 197 10*3/uL (130-400); RED BLOOD COUNT 2.96 10*6/uL (4.50-5.90); WHITE BLOOD COUNT 5.3 10*3/uL (4.8-10.8)
[2018-01-30 07:35] LABS: CHLORIDE 99 mmol/L (98-107); CREATININE 0.81 mg/dL (0.70-1.30); POTASSIUM 4.6 mmol/L (3.5-5.1); SODIUM 132 mmol/L (136-145)
[2018-01-30 07:41] LABS: BUN 31 mg/dl (7-24)
[2018-01-30 08:29] LABS: INTERNATIONAL NORM RATIO 4.4 (2.0-3.5)
[2018-01-31] VITALS: BP 110/60
[2018-01-31 06:45] LABS: INTERNATIONAL NORM RATIO 3.7 (2.0-3.5)
[2018-01-31 08:00] VITALS: BP 110/62
[2018-01-31 12:00] VITALS: BP 112/64
[2018-01-31 16:00] VITALS: BP 116/69; BP 16/69
[2018-01-31 20:00] VITALS: BP 118/68
[2018-02-01] VITALS: BP 129/65
[2018-02-01 06:01] LABS: BASO % 0.4 % (0.0-1.0); EOS # 0.1 10*3/uL (0.0-0.4); EOS % 1.4 % (1.0-4.0); HEMATOCRIT 28.8 % (42.0-52.0); HEMOGLOBIN 9.2 g/dl (14.0-18.0); LYMPH # 0.5 10*3/uL (1.3-4.4); LYMPH % 10.5 % (27.0-41.0); MEAN CELL VOLUME 92.6 fl (80.0-94.0); MEAN CORPUSCULAR HGB 29.6 pg (27.0-31.0); MEAN CORPUSCULAR HGB CONC 31.9 g/dl (33.0-37.0); MEAN PLATELET VOLUME 9.8 fl (9.6-12.3); MONO # 0.3 10*3/uL (0.1-1.0); MONO % 5.6 % (3.0-9.0); NEUT # 4.2 10*3/uL (2.3-7.9); NEUT % 80.9 % (47.0-73.0); PLATELET COUNT AUTOMATED 195 10*3/uL (130-400); RED BLOOD COUNT 3.11 10*6/uL (4.50-5.90); RED CELL DISTRI WIDTH 16.6 % (0-14.5); WHITE BLOOD COUNT 5.2 10*3/uL (4.8-10.8)
[2018-02-01 06:34] LABS: INTERNATIONAL NORM RATIO 2.9 (2.0-3.5)
[2018-02-01 06:37] LABS: CHLORIDE 98 mmol/L (98-107); CREATININE 0.64 mg/dL (0.70-1.30); POTASSIUM 4.1 mmol/L (3.5-5.1); SODIUM 131 mmol/L (136-145)
[2018-02-01 06:38] LABS: BUN 14 mg/dl (7-24)
[2018-02-01 08:00] VITALS: BP 118/68
[2018-02-01 08:39] VITALS: BP 118/58
[2018-02-01] MEDS ORDERED: FUROSEMIDE20 M1 PO (10:34)
== END 2018-02-01 14:02 | disposition other institution (70) | DRG 314 ==
LOC: ED 12:08 → ICCU 14:01 → EDHOLD 14:01 → ICCU 14:30 → 4E 01-30 14:37
PROVIDERS: Emergency Medicine; Family Medicine; Internal Medicine; Student in an Organized Health Care Education/Training Program
PROC: 02HV33Z Insertion of Infusion Device into Superior Vena Cava, Percutaneous Approach (ICD-10-PCS; principal; 2018-01-28)
PROC: B548ZZA Ultrasonography of Superior Vena Cava, Guidance (ICD-10-PCS; principal; 2018-01-28)
PROC: 30233N1 Transfusion of Nonautologous Red Blood Cells into Peripheral Vein, Percutaneous Approach (ICD-10-PCS; 2018-01-29)
DX: I95.9 Hypotension, unspecified (principal); N17.0 Acute kidney failure with tubular necrosis; E43 Unspecified severe protein-calorie malnutrition; E87.1 Hypo-osmolality and hyponatremia; I24.8 Other forms of acute ischemic heart disease; C79.51 Secondary malignant neoplasm of bone; I50.32 Chronic diastolic (congestive) heart failure; I42.5 Other restrictive cardiomyopathy; D68.9 Coagulation defect, unspecified; I25.5 Ischemic cardiomyopathy; E86.0 Dehydration; C61 Malignant neoplasm of prostate; R74.0 Nonspecific elevation of levels of transaminase and lactic acid dehydrogenase [LDH]; E87.5 Hyperkalemia; D53.9 Nutritional anemia, unspecified; E87.8 Other disorders of electrolyte and fluid balance, not elsewhere classified; Z66 Do not resuscitate; Z51.5 Encounter for palliative care; E83.41 Hypermagnesemia; Z96.653 Presence of artificial knee joint, bilateral; L89.890 Pressure ulcer of other site, unstageable; M1A.9XX0 Chronic gout, unspecified, without tophus (tophi); I48.0 Paroxysmal atrial fibrillation; E11.65 Type 2 diabetes mellitus with hyperglycemia; K21.9 Gastro-esophageal reflux disease without esophagitis; E66.01 Morbid (severe) obesity due to excess calories; I25.10 Atherosclerotic heart disease of native coronary artery without angina pectoris; I11.0 Hypertensive heart disease with heart failure; Z85.51 Personal history of malignant neoplasm of bladder; Z90.49 Acquired absence of other specified parts of digestive tract; Z88.6 Allergy status to analgesic agent; Z87.891 Personal history of nicotine dependence; Z79.899 Other long term (current) drug therapy; Z79.82 Long term (current) use of aspirin; Z79.02 Long term (current) use of antithrombotics/antiplatelets; Z79.01 Long term (current) use of anticoagulants; Z95.5 Presence of coronary angioplasty implant and graft; Z68.34 Body mass index [BMI] 34.0-34.9, adult